=== PATIENT | male | born 1965 | race Caucasian/White ===

== ENCOUNTER → 2016-07-31 | Outpatient (CLI) | payer OTHER ==
[~2016-07-31] MED LIST: ASPI81TA28 PO; CHOL100010 PO; JOINT JUICE PO; MULT-221 PO; NAPR1TAB9 PO; POTASSIUM PO; PRLSR20 PO
[2016-07-31 12:37] LABS: BLOOD UREA NITROGEN 14 mg/dl (7-18); BUN/CREATININE RATIO 10.6 (10-20); CALCIUM 9.4 mg/dl (8.5-10.1); CARBON DIOXIDE 26 mmol/L (21-32); CHLORIDE 102 mmol/L (98-107); GLUCOSE 96 mg/dl (70-99); SODIUM 136 mmol/L (136-145)
[2016-07-31 12:40] LABS: CHOLESTEROL 186 mg/dl (0-200); HDL CHOLESTEROL 46 mg/dl; LDL CHOLESTEROL CALCULATED 116 mg/dl; TRIGLYCERIDES 119 mg/dl (0-150); VERY LOW DENSITY LIPOPROT CALC 24 mg/dl
== END | disposition home or self-care (01) ==
LOC: C.LABPVFM 08:51
PROVIDERS: ATTEND Nurse Practitioner
DX: R60.9 Edema, unspecified (principal); Z13.220 Encounter for screening for lipoid disorders; E55.9 Vitamin D deficiency, unspecified

== ENCOUNTER → 2017-02-10 | Outpatient (CLI) | payer OTHER ==
[2017-02-10 17:59] LABS: BLOOD UREA NITROGEN 18 mg/dl (7-18); GLUCOSE 92 mg/dl (70-99)
[2017-02-10 18:00] LABS: AMYLASE 55 U/L (25-115); BUN/CREATININE RATIO 13.5 (10-20); CALCIUM 9.6 mg/dl (8.5-10.1); CARBON DIOXIDE 28 mmol/L (21-32); CHLORIDE 104 mmol/L (98-107); POTASSIUM 4.2 mmol/L (3.5-5.1); SODIUM 137 mmol/L (136-145)
[2017-02-10 18:02] LABS: ALKALINE PHOSPHATASE 92 U/L (45-117); ALT/SGPT 35 U/L (12-78); AST/SGOT 29 U/L (15-37)
[2017-02-10 18:12] LABS: BASO % 0.3 %; BASO ABS # 0.02 K/uL (0-0.2); COMPLETE YES; EOS % 4.5 %; HEMATOCRIT 47.6 % (42-52); LYMPH % 35.8 %; LYMPH ABS # 2.37 K/uL (1.2-3.4); MEAN CELL VOLUME 89.3 fL (80-100); MEAN CORPUSCULAR HEMOGLOBIN 29.6 pg (25-34); MEAN CORPUSCULAR HGB CONC 33.2 g/dl (32-36); MEAN PLATELET VOLUME 10.4 fL (7.4-10.4); MONO % 11.8 %; NEUT % 47.6 %; PLATELET COUNT 227 K/uL (130-400); RED BLOOD COUNT 5.33 M/uL (4.7-6.1); WHITE BLOOD COUNT 6.62 K/uL (4.8-10.8)
== END | disposition home or self-care (01) ==
LOC: C.LABPVFM 13:24
PROVIDERS: ATTEND Nurse Practitioner Family
DX: R10.11 Right upper quadrant pain (principal)

== ENCOUNTER → 2017-02-11 | Outpatient (CLI) | payer OTHER ==
--- NOTE | 2017-02-11 07:44 | DIAGNOSTIC IMAGING REPORT ---
ULTRASOUND RIGHT UPPER QUADRANT ABDOMEN CLINICAL HISTORY: Intermittent right upper quadrant abdominal pain. COMPARISON STUDY: No priors. TECHNIQUE: Real-time, grayscale, and color flow sonography of the right upper quadrant of the abdomen was performed. Images are reviewed in the transverse and longitudinal planes. The examination is degraded by large body habitus. FINDINGS: Liver: The liver is mildly enlarged measuring over 18 cm in length. The liver demonstrates heterogeneously increased echotexture consistent with hepatic steatosis. There is no intrahepatic biliary ductal dilatation. The main portal vein is patent. Gallbladder: The gallbladder is normal in appearance. No gallstones are identified. There is no gallbladder wall thickening or pericholecystic fluid. A sonographic Plaza's sign is reportedly absent. The common bile duct measures up to 0.4 cm in diameter. Pancreas: Visualized portions of the pancreatic head are normal in appearance. The majority of the pancreas was not well visualized. Right kidney: Survey images of the right kidney demonstrate normal size and echotexture. There is no hydronephrosis. Ascites: None. IMPRESSION: 1. No acute sonographic abnormality is identified in the right upper quadrant. No gallstones are seen. 2. Hepatomegaly and hepatic steatosis. Electronically signed by: Jose Juan Aceves M.D. 02/11/2017 7:42 AM Dictated Date/Time: 02/11/2017 7:41 AM
== END | disposition home or self-care (01) ==
LOC: C.ULTR 06:38
PROVIDERS: ATTEND Nurse Practitioner Family
DX: R10.11 Right upper quadrant pain (principal)

== ENCOUNTER → 2017-07-19 | Outpatient (CLI) | payer OTHER ==
[2017-07-19 12:44] LABS: ALBUMIN 3.6 gm/dl (3.4-5.0); ALT/SGPT 33 U/L (12-78); BLOOD UREA NITROGEN 19 mg/dl (7-18); CALCIUM 8.9 mg/dl (8.5-10.1); CARBON DIOXIDE 28 mmol/L (21-32); CHOLESTEROL 157 mg/dl (0-200); CREATININE 1.22 mg/dl (0.60-1.40); GLUCOSE 108 mg/dl (70-99); POTASSIUM 4.5 mmol/L (3.5-5.1); SODIUM 141 mmol/L (136-145)
[2017-07-19 12:47] LABS: ALKALINE PHOSPHATASE 74 U/L (45-117); AST/SGOT 21 U/L (15-37); LDL CHOLESTEROL CALCULATED 100 mg/dl; TOTAL PROTEIN 7.5 gm/dl (6.4-8.2)
== END | disposition home or self-care (01) ==
LOC: C.LABPVFM 08:54
PROVIDERS: ATTEND Nurse Practitioner Family
DX: R60.9 Edema, unspecified (principal); E66.01 Morbid (severe) obesity due to excess calories; E55.9 Vitamin D deficiency, unspecified

== ENCOUNTER → 2017-10-18 | Outpatient (CLI) | payer OTHER ==
[2017-10-18 13:05] LABS: HEMOGLOBIN A1C 5.6 % (4.5-5.6)
== END | disposition home or self-care (01) ==
LOC: C.LABPVFM 09:41
PROVIDERS: ATTEND Family Medicine
DX: E66.01 Morbid (severe) obesity due to excess calories (principal); R73.01 Impaired fasting glucose

== ENCOUNTER 2024-02-24 11:52 | Inpatient (IN) ==
--- NOTE | 2024-02-24 12:01 | Emergency Department Note ---
Impression & Plan Septic arthritis of knee, left, Pneumonia ED Provider Note NAME: NASH CLARK AGE: 59 SEX: M : 1965 ARRIVES VIA: Ambulance INFORMANT: Patient ED PROVIDER(S): FREDY Perez, Julian Pandey MD Chief Complaint: Left knee Injury History of Present Illness: This patient is a 59-year-old male who presents to the Emergency Department via ambulance for evaluation of their left knee pain. The patient reports they were seen at [facility] yesterday, and had an x-ray done of the left knee. The patient reports they were contacted by [facility] upon discharge and reported there was no fracture, and informed to follow-up with primary care. The patient states he went home, and noted he was unable to tolerate weight on the extremity. He reports he went to bed, and awoke today unable to bear weight at all due to severe pain. The patient also reports recent illness, with rhinovirus infection. He states he did have a an episode of fever, however it resolved on its own and this was approximately a week ago. He states since that time he has been feeling well, and denies other symptoms. He reports no cough, chest pain, abdominal pain, nausea, or vomiting. He is neurovascularly intact. Medications: See below Allergies: Cipro PMH: See ROS: All pertinent positive and negative review of systems are appropriately documented in the History of Present Illness. Physical Exam: VITALS: Vitals are noted on the nurse's note and reviewed by myself. Vital signs stable. GENERAL: 59-year-old male, in no acute distress, nondiaphoretic, morbidly obese. SKIN: Faint erythema present to the left medial and superior patella, edema present. HEAD: Normocephalic atraumatic. HEART: Tachycardia, without murmurs rubs or gallops. LUNGS: Clear to auscultation bilaterally without wheezes, rales or rhonchi. No retractions or accessory muscle use. ABDOMEN: Positive bowel sounds x 4. Soft, nontender, without masses or organomegaly. Plaza sign negative. No guarding or rebound tenderness. MUSCULOSKELETAL: Limited range of motion left knee, due to pain. Patient unable to perform range of motion without assistance. Discoloration of the bilateral lower extremities, from venous stasis. DP pulse intact, full range of motion left ankle, capillary refill <3. NEURO: Patient was alert and oriented to person place and time. No focal neurological deficits. MEDICAL DECISION MAKING: The patient is a pleasant 59-year-old male who arrives to the emergency department for evaluation of the above-stated complaint. Upon examination the patient has tenderness to palpation of the left knee, with no injury present. X-ray imaging was performed the day prior which showed a moderate to large joint effusion, with intra-articular loose bodies. A saline lock was established, CBC, CMP, ESR, CRP, and uric acid were obtained. CBC shows leukocytosis of 34.01, with a stable anemia, CMP shows no concerning findings, ESR 73, CRP 38.04, uric acid 7.4. At the return of these results, chest x-ray, blood cultures, procalcitonin, and lactate were ordered. Chest x- ray showed a finding of pneumonia, likely from his previous upper respiratory infection. Lactate 1.0, procalcitonin 2.15. I spoke with Dr. Pandey, my attending, regarding the patient's findings and antimicrobial coverage. He recommended drainage of the joint, with the evaluation of the fluid prior to antimicrobial coverage. Dr. Pandey was able to perform this procedure at bedside, please refer to his documentation regarding this procedure. After the synovial fluid was obtained, and blood cultures were obtained, the patient was started on IV Zosyn and IV vancomycin. He received 2 L bolus of normal saline as well. I spoke with Dr. Pollard from orthopedics regarding the findings of the left knee. He reported to admit the patient to medicine, make the patient n.p.o. after midnight, and he will take him to the operating room in the morning for a washout. I spoke with case management regarding admission for this patient, due to sepsis. Case management facilitated contact with the [facility] hospitalist group, Dr. Solomon, attending. Dr. Solomon agreed to accept the patient under his care. Please refer to his documentation for further patient workup and treatment. DIFFERENTIAL DIAGNOSIS: Fracture, dislocation, infection, effusion, septic arthritis, sepsis, pneumonia, upper respiratory infection, as well as other pathologies. The patient's case was discussed with Dr. Pandey, who agreed with my evaluation and treatment plan. The chart was completed utilizing [employer] voice recognition software. Grammatical errors, random word insertions, pronoun errors, and incomplete sentences are an occasional consequence of this system due to software limitations, ambient noise, and hardware issues. Any formal questions or concerns about the content, text, or information contained within the body of this dictation should be directly addressed to the physician for clarification. Past Med/Surg History Problem List (Updated 02/24/24 @ 20:25 by FREDY Hilario) Rhinovirus Pneumonia (Acute) Septic arthritis of knee, left (Acute) Decreased right shoulder range of motion Lymphedema Cellulitis of right lower leg Impaired fasting glucose Plantar wart of left foot Annual physical exam Vitamin D deficiency Dermatitis Acid reflux disease Obesity Medical History Infected sebaceous cyst Tachycardia Surgical History History of tonsillectomy Family History Father Malignant neoplasm of esophagus Myocardial infarction Uncle Myocardial infarction Denies family history of Ovarian cancer Prostate cancer Breast cancer Colorectal cancer Social History Smoking Status: Former smoker Age Started Using Tobacco: 17; Age Quit Using Tobacco: 25; packs per day: 0.5; Second Hand Exposure: No; Do You Dip or Chew Tobacco: No; Hx Alcohol Use: Yes Alcohol type: beer Alcohol Intake Frequency Comment: 5 beers per week Hx Substance Use: No Preferred Language: Indonesian Communication Ability: Effective 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 Beliefs That Will Affect Care: None marital status: Current Living Situation: Spouse current occupational status: employed current occupation: self employeed How many Children do You have: 0 Other Information That Helps Us Care for You: No Feels Safe at Home: Yes Safety Concerns: Feels Safe At This Time Childhood Exposure to Second-Hand Smoke: Yes Diet: regular caffeine: Yes Dental Care, Regularly: Yes Physical Activity Frequency: Daily Seatbelt Use: never Sunscreen Use: No Assistive Devices: Glasses Allergies Allergies Allergy/AdvReac Type Severity Reaction Status Date / Time No Known Allergies Allergy Verified 02/24/24 14:50 Home Meds Home Medications Medication Instructions Recorded Confirmed aspirin 81 mg tablet 81 mg PO DAILY 01/25/19 02/24/24 cholecalciferol (vitamin D3) 50 2,000 units PO DAILY 01/25/19 02/24/24 mcg (2,000 unit) tablet multivitamin (One-A-Day Essential 1 tab PO DAILY 01/25/19 02/24/24 tablet) potassium gluconate 595 mg (99 mg) 595 mg PO DAILY 01/25/19 02/24/24 tablet metformin 1,000 mg tablet 1,000 mg PO BIDWMEAL 02/24/24 02/24/24 phentermine 37.5 mg capsule 37.5 mg PO QAM 02/24/24 02/24/24 topiramate 50 mg tablet 50 mg PO BID 02/24/24 02/24/24 Previous Rx's Medication Instructions Recorded furosemide 20 mg tablet 30 mg (1.5 x 20 mg) PO DAILY #135 02/21/24 tabs prednisone 10 mg tablet 40 mg (4 x 10 mg) PO DAILY 7 days 02/21/24 #28 tabs Results & Data (ED) Vital Signs Vital Signs - 24 hr 02/24/24 12:00 Temperature 36.9 C Temperature Source Oral Pulse Rate 109 H Respiratory Rate 18 Respiratory Effort / Characteristics Non-Labored Spontaneous Respiratory Depth Normal Blood Pressure 141/101 H Blood Pressure Mean 114 Pulse Oximetry 96 Oxygen Delivery Method Room Air Sepsis Recent Fever Within 48 Hours No Sepsis New/Unexplained Change in Mental Status No Sepsis Action Taken by Nursing No Action Required Home Medications Current Medication List: was personally reviewed by me Laboratory Data Attestation: I reviewed the patient's lab results. 02/24/24 12:30 02/24/24 12:30 Lab Results 02/24/24 02/24/24 02/24/24 Range/Units 12:30 12:30 13:25 WBC 34.01 H* (4.8-10.8) K/ul RBC 4.59 L (4.70-6.10) M/uL Hgb 13.6 L (14.0-18.0) g/dl Hct 41.0 L (42.0-52.0) % MCV 89.3 (80.0-100.0) fL MCH 29.6 (25.0-34.0) pg MCHC 33.2 (32.0-36.0) g/dL RDW Std Deviation 41.4 (36.4-46.3) fL RDW Coeff of Elham 12.6 (11.5-14.5) % Plt Count 253 (130-400) K/uL MPV 10.1 (9.4-12.4) fL Immature Gran % (Auto) 0.6 % Neut % (Auto) 95.0 % Lymph % (Auto) 1.8 % Nicollet % (Auto) 2.2 % Eos % (Auto) 0.0 % Baso % (Auto) 0.4 % Neut # (Auto) 32.35 H (1.40-6.50) K/uL Lymph # (Auto) 0.60 L (1.20-3.40) K/uL Nicollet # (Auto) 0.74 H (0.11-0.59) K/uL Eos # (Auto) 0.00 (0.00-0.50) K/uL Baso # (Auto) 0.12 (0.00-0.20) K/uL Immature Gran # (Auto) 0.20 (0.01-0.20) K/uL ESR 73 H (0-20) mm/hr Sodium 135 L (136-145) mmol/L Potassium 4.1 (3.5-5.1) mmol/L Chloride 104 (98-107) mmol/L Carbon Dioxide 22 (21-32) mmol/L Anion Gap 9 (3-11) BUN 29 H (6-23) mg/dl Creatinine 1.29 (0.6-1.4) mg/dl Est Cr Clr Drug Dosing 87.9 ml/min Est GFR ( Amer) 69.4 ml/min Est GFR (Non-Af Amer) 59.9 ml/min BUN/Creatinine Ratio 22.5 H (10-20) Glucose 130 H (70-99(Fasting)) mg/dl Lactate 1.0 (0.4-2.0) mmol/L Uric Acid 7.4 H (2.6-7.2) mg/dl Calcium 9.2 (8.6-10.3) mg/dl Total Bilirubin 1.1 H (0.2-1.0) mg/dl AST 16 (13-39) U/L ALT 15 (7-52) U/L Alkaline Phosphatase 79 (34-104) U/L C-Reactive Protein 38.04 H (0-0.5) mg/dl Total Protein 6.8 (6.0-8.3) gm/dl Albumin 3.2 L (3.4-5.0) gm/dl Globulin 3.6 (2.5-4.0) gm/dl Albumin/Globulin Ratio 0.9 (0.9-2) Procalcitonin 2.15 H Cancelled (0-0.5) ng/ml Lyme Disease Screen Negative (Negative) Administered Medications Acetaminophen (Acetaminophen 325 Mg Tab) 650 mg PO Q6H PRN PRN Reason: pain(1-4),headache,fever Stop: 03/25/24 14:22 Last Admin: 02/24/24 17:48 Dose: 650 mg Documented By: SANCHEZ Morphine Sulfate (Morphine Sulfate 2 Mg/Ml Carp) 2 mg IV Q4H PRN PRN Reason: Pain(5+) Stop: 03/09/24 14:22 Last Admin: 02/24/24 14:41 Dose: 2 mg Documented By: ROYAL Discontinued Medications Piperacillin Sod/Tazobactam Sod (Zosyn) 4.5 gm in 100 mls @ 200 mls/hr IV NOW ONE Stop: 02/24/24 14:34 Last Infusion: 02/24/24 15:35 Dose: Infused Documented By: Admin: 02/24/24 14:41 Dose: 200 mls/hr Documented By: ROYAL Piperacillin Sod/Tazobactam Sod (Zosyn) 4.5 gm in 100 mls @ 200 mls/hr IV NOW ONE Stop: 02/24/24 14:36 Last Admin: 02/24/24 14:48 Dose: Not Given Documented By: JOAQUINA Vancomycin HCl 2,750 mg/ (Sodium Chloride) 555 mls @ 200 mls/hr IV NOW ONE Stop: 02/24/24 16:57 Last Infusion: 02/24/24 18:20 Dose: Infused Documented By: Admin: 02/24/24 15:29 Dose: 200 mls/hr Documented By: MAXIMILIANO Lactated Ringer's (Lr) 1,000 mls @ 999 mls/hr IV .Q1H1M ONE Stop: 02/24/24 15:17 Last Admin: 02/24/24 14:48 Dose: Not Given Documented By: JOAQUINA Lidocaine HCl (Lidocaine 1% Local 20 Ml Vial) 10 ml INJ NOW ONE Stop: 02/24/24 13:31 Last Admin: 02/24/24 13:39 Dose: 10 ml Documented By: JOAQUINA Imaging Data Attestation: I personally reviewed and interpreted this imaging study as follows: Radiologist's Impression: Chest X-Ray 02/24/24 13:29 XR chest 1V portable HISTORY: Cough. r/o pneumonia COMPARISON: None. FINDINGS: No pneumothorax. The cardiac silhouette is top normal in size. No acute fractures identified. There is a trace left pleural effusion. Small linear density at the right medial lung base favors subsegmental atelectasis are scarring. Otherwise, the right lung appears clear. There is a patchy left perihilar airspace opacity. This likely represents a pneumonia. IMPRESSION: 1. Patchy left perihilar airspace opacity which likely represents a pneumonia. 1-2 month chest x-ray follow-up recommended to ensure resolution. 2. Trace left pleural effusion. ACT 112: Negative or not required by law. Electronically signed by: Berhane Nance M.D. 02/24/2024 1:45 PM Discharge Plan Visit Data Chief Complaint: Knee Injury/Pain Stated Complaint: L KNEE PAIN ED Provider: Julian Pandey ED Midlevel Provider: Kelli Camacho Discharge Problem: Septic arthritis of knee, left, Pneumonia Patient Disposition: Admitted As Inpatient Discharge Instructions Interventions: ED Discharge Assessment Last Done: 02/24/24 16:12
[2024-02-24 13:13] LABS: Albumin Globulin Ratio 0.9 (0.9-2); Albumin Level 3.2 gm/dl (3.4-5.0); BUN Creatinine Ratio 22.5 (10-20); Bilirubin,Total 1.1 mg/dl (0.2-1.0); Calcium 9.2 mg/dl (8.6-10.3); Creatinine Clr Calc Pharmacy 87.9 ml/min; Est GFR (African American) 69.4 ml/min; Est GFR (Non-African American) 59.9 ml/min; Globulin 3.6 gm/dl (2.5-4.0); Potassium 4.1 mmol/L (3.5-5.1); Total Protein 6.8 gm/dl (6.0-8.3); Uric Acid 7.4 mg/dl (2.6-7.2)
[2024-02-24 13:17] LABS: Hemoglobin 13.6 g/dl (14.0-18.0); Mean Corpuscular Hemoglobin 29.6 pg (25.0-34.0); Mean Corpuscular Hgb Conc 33.2 g/dL (32.0-36.0); Mean Corpuscular Volume 89.3 fL (80.0-100.0); Mean Platelet Volume 10.1 fL (9.4-12.4); Platelet Count 253 K/uL (130-400); RDW Coefficient of Variation 12.6 % (11.5-14.5); RDW Standard Deviation 41.4 fL (36.4-46.3); Red Blood Count 4.59 M/uL (4.70-6.10); White Blood Count 34.01 K/ul (4.8-10.8)
[2024-02-24 13:31] LABS: Basophils # (auto) 0.12 K/uL (0.00-0.20); Basophils % (auto) 0.4 %; Immature Granulocytes % (auto) 0.6 %; Lymphocytes % (auto) 1.8 %; Monocytes # (auto) 0.74 K/uL (0.11-0.59); Monocytes % (auto) 2.2 %; Neutrophils # (auto) 32.35 K/uL (1.40-6.50)
[2024-02-24] MEDS: LIDOCAINE 1% LOCAL 20 ML VIAL INJ ONE (13:39)
[2024-02-24 13:44] LABS: Lyme Screen Rflx Confirmation Negative (Negative)
--- NOTE | 2024-02-24 13:47 | XRay Report ---
XR chest 1V portable HISTORY: Cough. r/o pneumonia COMPARISON: None. FINDINGS: No pneumothorax. The cardiac silhouette is top normal in size. No acute fractures identifie d. There is a trace left pleural effusion. Small linear density at the right medial lung base favors subsegmental atelectasis are scarring. Otherwise, the right lung appears clear. There is a patchy lef t perihilar airspace opacity. This likely represents a pneumonia. IMPRESSION: 1. Patchy left perihilar airspace opacity which likely represents a pneumonia. 1-2 month chest x-ray follow-up recommended to ensure resolution. 2. Trace left pleural effusion. ACT 112: Negative or not required by law. Electronically signed by: Berhane Nance M.D. 02/24/2024 1:45 PM
[2024-02-24 13:52] LABS: Procalcitonin 2.15 ng/ml (0-0.5)
--- NOTE | 2024-02-24 13:52 | Emergency Department Note ---
ED Visit Note ED Physician Supervisory Note & Attestation: I was consulted by the Advanced Practice Provider, FREDY Perez. I personally made/approved the management plan and take responsibility for the patient management. I performed a substantive portion of the visit. This includes the aspects of: MDM: 59-year-old gentleman with left knee pain over the last few days. Patient had recently been diagnosed with rhinovirus infection about a week ago. Initially improved and then started feeling ill again. Rapidly worsening left knee pain. Seen outpatient where x-rays obtained which showed joint effusion and some questionable foreign bodies throughout the knee joint. 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 He denies any falls, trauma, injuries. On examination he has a significantly swollen edematous left knee. Severe pain with any range of motion. Questionable very slight erythema over the medial aspect of the knee. With laboratory workup concerning for infection I felt that tapping the knee was necessary. I did obtain 20 cc of cloudy purulent fluid. Difficulty accessing from lateral component thus a medial/anterior approach was successful in accessing the joint. Patient was then ordered Zosyn. Orthopedics will be consulted. I will note the chest x-ray also shows a left lower lobe pneumonia. Suspect this is either rhinovirus or a secondary infection post rhinovirus. It may be that this is what seeded the knee. Orthopedics was consulted and at this time do plan on taking patient to the OR tomorrow for washout. Sepsis management. While patient does have evidence of sepsis and in the setting of some tachycardia and elevated white blood cell count and findings of infection blood culture were obtained. He was also given IV Zosyn for coverage. Repeat examinations revealed no evidence of hypotension and patient does not have any hypoxia or other concerning findings. Lactic acid is within normal range. Of note patient does not require 30/kg IV fluids at this time. Imaging: Three-view x-ray of the left knee as per my interpretation moderate to large left effusion no evidence of fracture or dislocation. 1 view chest x-ray as per my interpretation left lower lobe infiltrate with some mild haziness all lung clay. Procedure: Procedure: Joint aspiration Indication: Concern for septic joint Location: Left knee After discussing the pros and cons verbally with patient he agrees to proceeding with left knee aspiration. Patient is aware of the risks of causing infection along with pain, injury, bleeding amongst others. Area was cleansed and Betadine and using sterile approach I locally anesthetized the lateral upper area to patella with 2cm 1% lidocaine without epinephrine. In standard fashion, I then used an 18-gauge needle to try and access the joint space. Unfortunately unable to get much fluid other than a trace amount. Due to the amount of edema and patient's body habitus it was difficult to access the joint from this location. Thus at this point a new needle and syringe was obtained. I reanesthetized locally the medial aspect of the knee joint with lidocaine. I then used an 18-gauge needle to access the joint space. Large amount of purulent exudate was removed. This will be sent for laboratory testing. There is a component bleeding. Patient tolerated quite well without difficulty. I performed the procedure myself. Julian Pandey MD
[2024-02-24 14:02] LABS: C Reactive Protein 38.04 mg/dl (0-0.5)
[2024-02-24] MEDS ORDERED: VANCOMYCIN CONSULT ACTIVE PRN (14:07)
--- NOTE | 2024-02-24 14:20 | History & Physical Report ---
Date of Service February 24, 2024 Assessment & Plan (1) Septic arthritis of knee, left: Plan: Admit to med telemetry Currently stable and nontoxic-appearing Presented to the ED on 02/24/2024 due to progressive left knee swelling and pain after starting a course of prednisone for recently diagnosed rhinovirus infection on 02/21/2024 Left knee x-ray obtained 02/23/2024 shows moderate to large effusion without acute trauma Patient noted to have a significant leukocytosis with neutrophil predominance, would not expect this significant for leukocytosis with neutrophil predominance for being on his current steroids ED obtained left knee aspirate which has been sent for fluid analysis and Gram stain, they explained that the aspirate was significantly purulent raising concern for septic arthritis After blood cultures are obtained at the time of admission we will give the patient a dose of ceftriaxone for now and follow joint aspirate studies along with Gram stain Will tailor ongoing antibiotics based on aspirate analysis and Gram stain Lactate was within normal limits, blood pressure stable, will hold IV fluids for now Orthopedics has been consulted and confirms they will take the patient to the OR tomorrow morning for left knee washout Pain control with Tylenol and morphine for now Narcan for oversedation/respiratory depression Heart healthy diet until midnight then n.p.o. except meds AM CBC, CMP, mag, PT/NR (2) Pneumonia: Plan: Patient noted he has had upper respiratory infections including congestion and mildly productive cough for approximately 1 week Outpatient respiratory BioFire was positive for rhinovirus on 02/21/2024 Chest x-ray today shows patchy left perihilar airspace opacity which likely represents pneumonia, 1 to 2 months chest x-ray follow-up recommended to ensure resolution Will try to obtain sputum culture with Gram stain Continue vancomycin/Zosyn for now pneumonia and septic arthritis, will ensure ongoing antibiotics will continue to cover both sources of infection Incentive spirometry, as needed O2 to keep SpO2 at or above 94% As needed albuterol (3) Rhinovirus: Plan: Supportive care per pneumonia plan Plan The patient was discussed with Dr. Solomon at the time of the admission History of Present Illness Chief Complaint: Left knee pain/swelling Primary Care Provider: Ronaldo Stoddard DO Ednancy is a 59-year-old male with a past medical history significant for obesity and GERD who presented to the [facility] ED on 02/24/2024 due to ongoing/progressive left knee pain and swelling. Patient was initially diagnosed with rhinovirus on 02/21/2024 during a PCP visit and was prescribed a prednisone taper. He then presented to the [facility] clinic on 02/23/2024 due to left knee pain. X-ray of the left knee obtained on 02/23/2024 was read as negative for acute fracture or dislocation. Moderate to large knee effusion with intra-articular loose bodies. Severe tricompartmental osteoarthritis. On arrival to the ED he was noted to be tachycardic with heart rate in the low 100s but otherwise stable. Labs were significant for a leukocytosis of 34 with neutrophil predominance of 32, ESR of 73, lactate within normal limits, uric acid level of 7.4, CRP of 38, Pro-Avelino of 2.15, with Lyme disease screen negative. The ED to perform joint aspiration of the left knee and noted significantly purulent aspirate which has been sent for analysis. Stat blood cultures were ordered by the admitting team prior to administration of first dose of antibiotics. Chest x-ray was read as patchy left perihilar airspace opacity which like represents a pneumonia. 1-2-month chest x-ray follow-up recommended to ensure resolution. Trace left pleural effusion. The ED did speak with orthopedics who confirmed that they will take him to the OR tomorrow morning for washout. Patient was sitting in bed in no acute distress at time of exam with his bedside, history is obtained from both. Confirms that he initially presented to his PCP on 02/21/2024 due to routine follow-up appointment and underwent bio fire testing as he had cold symptoms and tested positive for rhinovirus. Confirms that he had been taking the prednisone taper since 02/21/2024 as scheduled with his last dose of steroids this morning. States that his left knee pain/swelling quickly started on 02/22/2024. Has been having fever/chills intermittently since 02/21/2024 but denies recent chest pain, shortness of breath, abdominal pain, na usea/vomiting, diarrhea, dysuria/hematuria, melena, or recent trauma. Confirms that his right shoulder pain is chronic due to previous right shoulder injury and is not associated with his recent left knee pain or swelling. Confirms he is a full code and would want his to decisions for him if he cannot make them himself. Please refer to Dr. Solomon's attestation for any changes to the plan Allergies Allergy/AdvReac Type Severity Reaction Status Date / Time No Known Allergies Allergy Verified 02/24/24 14:50 Home Medications Medication Instructions Recorded Confirmed Type aspirin 81 mg tablet 81 mg PO DAILY 01/25/19 02/24/24 History cholecalciferol (vitamin D3) 50 2,000 units PO DAILY 01/25/19 02/24/24 History mcg (2,000 unit) tablet multivitamin (One-A-Day Essential 1 tab PO DAILY 01/25/19 02/24/24 History tablet) potassium gluconate 595 mg (99 mg) 595 mg PO DAILY 01/25/19 02/24/24 History tablet furosemide 20 mg tablet 30 mg (1.5 x 20 mg) PO DAILY #135 02/21/24 02/24/24 Rx tabs prednisone 10 mg tablet 40 mg (4 x 10 mg) PO DAILY 7 days 02/21/24 02/24/24 Rx #28 tabs metformin 1,000 mg tablet 1,000 mg PO BIDWMEAL 02/24/24 02/24/24 History phentermine 37.5 mg capsule 37.5 mg PO QAM 02/24/24 02/24/24 History topiramate 50 mg tablet 50 mg PO BID 02/24/24 02/24/24 History Past Med/Surg History Problem List Rhinovirus Pneumonia (Acute) Septic arthritis of knee, left (Acute) Decreased right shoulder range of motion Lymphedema Cellulitis of right lower leg Impaired fasting glucose Plantar wart of left foot Annual physical exam Vitamin D deficiency Dermatitis Acid reflux disease Obesity Medical History Infected sebaceous cyst Tachycardia Surgical History History of tonsillectomy Family History Father Malignant neoplasm of esophagus Myocardial infarction Uncle Myocardial infarction Denies family history of Ovarian cancer Prostate cancer Breast cancer Colorectal cancer Social History Smoking Status: Former smoker Age Started Using Tobacco: 17; Age Quit Using Tobacco: 25; packs per day: 0.5; Second Hand Exposure: No; Do You Dip or Chew Tobacco: No; Hx Alcohol Use: Yes Alcohol type: beer Alcohol Intake Frequency Comment: 5 beers per week Hx Substance Use: No Preferred Language: Bahraini Communication Ability: Effective Test Engineering Manager Required: No Beliefs That Will Affect Care: None marital status: Current Living Situation: Spouse current occupational status: employed current occupation: self employeed How many Children do You have: 0 Other Information That Helps Us Care for You: No Feels Safe at Home: Yes Safety Concerns: Feels Safe At This Time Childhood Exposure to Second-Hand Smoke: Yes Diet: regular caffeine: Yes Dental Care, Regularly: Yes Physical Activity Frequency: Daily Seatbelt Use: never Sunscreen Use: No Assistive Devices: Glasses Physical Exam Physical Exam: Physical Exam: General: In no acute distress, stated age, obese, nontoxic-appearing HEENT: Normocephalic, atraumatic, no scleral icterus, pupils around round, symmetrical, and reactive to light, moist mucus membranes, trachea midline, no thyromegaly Chest/Pulm: No respiratory distress, symmetrical chest expansion, rhonchi noted in the left midlung with scattered expiratory wheezing Cardiac: Tachycardic rate, regular rhythm,, no murmurs noted Abdomen: Negative for ascites and bruising, normoactive bowel sounds, soft, non-tender to palpation throughout Musculoskeletal: Left knee swollen and warm to palpation, no acute drainage from the recent left knee aspiration site, increased pain with flexion and extension of the left knee without acute trauma Extremities: Radial, dorsalis pedis, and posterior tibial pulses are intact and symmetrical, symmetrical chronic lymphedema in the bilateral lower extremities with increased swelling the left knee compared to right Skin: Left knee currently covered in Betadine from recent knee aspirate, skin is warm to the touch Neuro: Alert and oriented to person, place, month, year, and president, no focal defects,no tremors noted Psych: No acute distress, calm and cooperative during the exam Results & Data Results & Data Vital Signs (Past 12 Hours) Vital Signs Temp Pulse Resp BP Pulse Ox O2 Del Method 02/24/24 12:00 36.9 C 109 H 18 141/101 H 96 Room Air Laboratory Results Abnormal lab results 02/24/24 Range/Units 12:30 WBC 34.01 H* (4.8-10.8) K/ul RBC 4.59 L (4.70-6.10) M/uL Hgb 13.6 L (14.0-18.0) g/dl Hct 41.0 L (42.0-52.0) % Neut # (Auto) 32.35 H (1.40-6.50) K/uL Lymph # (Auto) 0.60 L (1.20-3.40) K/uL Blount # (Auto) 0.74 H (0.11-0.59) K/uL ESR 73 H (0-20) mm/hr Sodium 135 L (136-145) mmol/L BUN 29 H (6-23) mg/dl BUN/Creatinine Ratio 22.5 H (10-20) Glucose 130 H (70-99(Fasting)) mg/dl Uric Acid 7.4 H (2.6-7.2) mg/dl Total Bilirubin 1.1 H (0.2-1.0) mg/dl C-Reactive Protein 38.04 H (0-0.5) mg/dl Albumin 3.2 L (3.4-5.0) gm/dl Procalcitonin 2.15 H (0-0.5) ng/ml Diagnostic Findings Chest X-Ray 02/24/24 13:29 XR chest 1V portable HISTORY: Cough. r/o pneumonia COMPARISON: None. FINDINGS: No pneumothorax. The cardiac silhouette is top normal in size. No acute fractures identified. There is a trace left pleural effusion. Small linear density at the right medial lung base favors subsegmental atelectasis are scarring. Otherwise, the right lung appears clear. There is a patchy left perihilar airspace opacity. This likely represents a pneumonia. IMPRESSION: 1. Patchy left perihilar airspace opacity which likely represents a pneumonia. 1-2 month chest x-ray follow-up recommended to ensure resolution. 2. Trace left pleural effusion. ACT 112: Negative or not required by law. Electronically signed by: Berhane Nance M.D. 02/24/2024 1:45 PM Code Status & VTE Plan Code Status Full code VTE Prophylaxis Plan VTE Prophylaxis will be ordered: Yes Supervising Physician Co-Signing Physician Notes I personally saw and examined the patient. I verified all cuellar points and agree with Danie Benson PA-C with the following exceptions and/or additions: 59 year old male presents to the ER with left knee swelling and pain with recent URI symptoms currently on prednisone. O/E HS RRR, no murmurs, Chest CTAB, Abdo SNT, Left knee now covered in iodine but no gross erythema, knee effusion with pain on palpation of joint present A/P Septic knee arthritis - GPC on gram stain knee aspirate. continue vancomycin per uptodate recommendations (ceftriaxone prescribed mostly for pneumonia) pending full identification. consult ortho. NPO after midnight for knee washout PNA - ceftriaxone, sputum culture pending Rhino/enterovirus - supportive care PG Care Time/CCT Total # of Minutes Spent Total Time Spent with Patient: Total time spent is greater than 50% in coordination of care (as documented) at patient's floor/unit and/or counseling patient: Coding [place] [address] INT INP/OBS CARE 3/75MIN Patient Type Established Medical Decision Making High Complexity Diagnoses Septic arthritis of knee, left M00.9 Pneumonia J18.9 Rhinovirus B34.8
[2024-02-24] MEDS ORDERED: NALOXONE HCL 0.4 MG/1 ML VIAL/CARP IV PRN (14:23)
[2024-02-24] MEDS: PIPERACILLIN/TAZOBACTAM 4.5 GM/100 ML BAG IV ONE ×2 (14:41→14:48)
[2024-02-24] MEDS: MoRPHine SULFATE 2 MG/ML CARP IV PRN (14:41)
[2024-02-24] MEDS ORDERED: ALBUTEROL 0.5% NEB SOLN 2.5 MG/0.5 ML VIAL NEB PRN (14:44)
[2024-02-24] MEDS: LACTATED RINGER'S 1,000 ML IV ONE (14:48)
[2024-02-24] MEDS: VANCOMYCIN HCL 2,750 MG in SODIUM CHLORIDE 0.9% 500 ML IV ONE (15:29)
[2024-02-24 16:15] LABS: Appearance Synovial Fluid Turbid; Color Synovial Fluid Amber; Mononuclear WBC Synovial 13.1 %; Polynuclear WBC Synovial 86.9 %; RBC Synovial Fluid Auto 68000 /uL; Source Synovial Fluid Knee; WBC Synovial Fluid Auto 216850 /ul (0-200)
[2024-02-24] MEDS: ACETAMINOPHEN 325 MG TAB PO PRN (17:48)
[2024-02-24] MEDS: TOPIRAMATE 50 MG TAB PO SCH (20:35)
[2024-02-24] MEDS: cefTRIAXone SODIUM 2,000 MG/50 ML BAG IV SCH (21:59)
[2024-02-24] MEDS: LACTATED RINGER'S 1,000 ML IV SCH (22:32)
[2024-02-25 00:10] LABS: Appearance Urine Clear (Clear); Bilirubin Urine Negative (Negative); Blood Urine 2+ (Negative); Color Urine Yellow; Glucose Urine UA Negative (Negative); Ketones Urine Negative (Negative); Leukocyte Esterase Urine Negative (Negative); Nitrite Urine Negative (Negative); Protein Urine 1+ (Negative); Specific Gravity Urine 1.015 (1.000-1.030); Urobilinogen Urine Negative (Negative); pH Urine 5.5 (4.5-7.5)
[2024-02-25 01:09] LABS: A calco-baum cmplx NotReported Not Detected (NotDetected); Bact fragilis Not Reported Not Detected (NotDetected); Blood Culture Id Panel See PCR Comment (NotDetected); C auris Not Reported Not Detected (NotDetected); Calbicans Not Reported Not Detected (NotDetected); Candida glabrata Not Reported Not Detected (NotDetected); Candida krusei Not Reported Not Detected (NotDetected); Cneoformans/gatti Not Reported Not Detected (NotDetected); Cparapsilosis Not Reported Not Detected (NotDetected); E cloacae compx Not Reported Not Detected (NotDetected); Efaecalis Not Reported Not Detected (NotDetected); Efaecium Not Reported Not Detected (NotDetected); Enterobacterales Not Reported Not Detected (NotDetected); Escherichia coli Not Reported Not Detected (NotDetected); H influenzae Not Reported Not Detected (NotDetected); K aerogenes Not Reported Not Detected (NotDetected); Koxytoca Not Reported Not Detected (NotDetected); Kpneumoniae grp Not Reported Not Detected (NotDetected); Lmonocyt Not Reported Not Detected (NotDetected); N meningitidis Not Reported Not Detected (NotDetected); P aeruginosa Not Reported Not Detected (NotDetected); Proteus spp Not Reported Not Detected (NotDetected); Salmonella spp Not Reported Not Detected (NotDetected); Staph lugdunensis Not Reported Not Detected (NotDetected); Staph spp. Not Reported Not Detected (NotDetected); Staphaureus Not Reported Not Detected (NotDetected); Staphepi Not Reported Not Detected (NotDetected); Stenmaltophilia Not Reported Not Detected (NotDetected); Strep agal(GrpB) Not Reported Not Detected (NotDetected); Strep pneum Not Reported DETECTED (NotDetected); Strep pyog (GrpA) Not Reported Not Detected (NotDetected); Strep spp Not Reported DETECTED (NotDetected); Streptococcus spp DETECTED (NotDetected)
[2024-02-25 01:14] LABS: Epithelial Cell Urine 0-2 /hpf (0-2)
[2024-02-25 01:15] LABS: Bacteria Urine 1+ (None Seen); WBC Urine 0-5 /hpf (0-5)
[2024-02-25 01:29] LABS: Streptococcus pneumoniae DETECTED (NotDetected)
[2024-02-25 04:42] LABS: Mean Corpuscular Hemoglobin 30.2 pg (25.0-34.0); Mean Corpuscular Hgb Conc 34.2 g/dL (32.0-36.0); Mean Corpuscular Volume 88.2 fL (80.0-100.0); Platelet Count 245 K/uL (130-400); RDW Coefficient of Variation 12.8 % (11.5-14.5); Red Blood Count 4.31 M/uL (4.70-6.10); White Blood Count 28.88 K/ul (4.8-10.8)
[2024-02-25 04:59] LABS: Basophils # (auto) 0.05 K/uL (0.00-0.20); Basophils % (auto) 0.2 %; Immature Granulocytes % (auto) 0.7 %; Lymphocytes # (auto) 1.17 K/uL (1.20-3.40); Lymphocytes % (auto) 4.1 %; Monocytes # (auto) 0.88 K/uL (0.11-0.59); Neutrophils # (auto) 26.58 K/uL (1.40-6.50)
[2024-02-25 05:03] LABS: INR 1.4 (0.9-1.1); Prothrombin Time 14.4 Seconds (9.0-12.0)
[2024-02-25 05:05] LABS: Albumin Globulin Ratio 0.9 (0.9-2); Albumin Level 2.9 gm/dl (3.4-5.0); BUN Creatinine Ratio 17.9 (10-20); Bilirubin,Total 0.6 mg/dl (0.2-1.0); Calcium 8.9 mg/dl (8.6-10.3); Creatinine Clr Calc Pharmacy 84.6 ml/min; Est GFR (African American) 66.3 ml/min; Est GFR (Non-African American) 57.2 ml/min; Globulin 3.3 gm/dl (2.5-4.0); Magnesium 1.7 mg/dl (1.7-2.4); Potassium 4.1 mmol/L (3.5-5.1); Total Protein 6.2 gm/dl (6.0-8.3)
[2024-02-25] MEDS: VANCOMYCIN HCL 1,250 MG in SODIUM CHLORIDE 0.9% 250 ML IV SCH (05:47)
--- NOTE | 2024-02-25 06:50 | Hospitalist Progress Note ---
Date of Service February 25, 2024 Assessment & Plan (1) Rhinovirus: (2) Pneumonia: (3) Septic arthritis of knee, left: (4) Bacteremia: Plan 59-year-old male with a past medical history significant for obesity and GERD who presented to the [facility] ED on 02/24/2024 due to ongoing/progressive left knee pain and swelling. (1) Septic arthritis of knee, left: - Progressive left knee swelling Left knee x-ray obtained- shows moderate to large effusion without acute trauma - Lactate was within normal limits - Knee aspiration: increased WBC, Gram stain positive for Strp. Pneumoniae - Continue IV vancomycin 1250mg Q12H and IV ceftriaxone 2000mg Q24H - ID consulted: Continue to tailor antibiotics per ID recommendations Orthopedics consulted: OR today for left knee washout NPO, IV fluids Pain control with Tylenol and morphine prn (2) Gram positive Bacteremia: - WBC count 34 on admission, trending down, 29k this morning - Blood cx: Gram stain showed gram + bacteria - ID consulted for bacteremia and left knee septic arthritis Recommendations from ID: - Continue IV antibiotics - Recommend another BCx set to ensure clearance (can order these at 48-72 hours sarah) - Await OR findings and cultures - Follow arthrocentesis 02/23 cx (3) Pneumonia: Patient noted he has had upper respiratory infections including congestion and mildly productive cough for approximately 1 week Outpatient respiratory BioFire was positive for rhinovirus on 02/21/2024 - fever of 103.1F, leukocytosis, tachycardia Chest x-ray today shows patchy left perihilar airspace opacity which likely represents pneumonia Continue IV Abx Incentive spirometry, as needed O2 to keep SpO2 at or above 94% As needed albuterol (4) Rhinovirus: Supportive care per pneumonia plan Diet: Heart healthy diet, NPO today until after ortho procedure Dispo: Med telemetry Code Status: Full code DVT Prophylaxis: SCDs - plan for surgery today Admission and Anticipated Discharge Date Admission Date: February 24, 2024 Supervising Physician Co-Signing Physician Notes Attending Physician Supervision Note: I independently interviewed and examined the patient and verified the cuellar history and physical, reviewed labs and image studies and agree with findings and care plan noted above. 59 y/o M here with left knee swelling and pain with recent URI symptoms currently on prednisone. Seen this am. Waiting for surgery. In PACU - developed SVT 190s with hypotension. Comfortable this am. Left knee no gross erythema, knee effusion with pain on palpation of joint present Septic knee arthritis - now s/p washout. Blood cx - strep pneumo. -WBC improving. -ID consulted - continue ceftriaxone. Recheck cx in 72hrs. -LR 100ml/hr SVT unstable - developed in PACU. failed adenosine x2. cardio consulted - star gay on cardizem drip and transferred to ICU. Feeder Switchboard Operator consulted. PNA - ceftriaxone, sputum culture negative. Rhino/enterovirus - supportive care. d/c prednisone. Hyponatremia - stable. follow Glucose intolerance/Weight ds - On phenteramine, topamax and metformin. Holding. Assess DVT proph option in am. Subjective Patient is a 59M who first presented to the ER ON 02/24/2024 with a two day history of a painful and swollen left knee with no known injury or recent surgery but 3 day hx of URI. - On 02/20, pt had presented to PCP with URI sx, fever 103.1, +rhinovirus on Biofire, given prednisone - Pt presented to Urgent Care on 02/22 due to L knee pain, x-ray found no evidence of fracture - Pain increased at home and pt reported to the ER, synovial fluid tap determined possible septic arthritis of the L knee d/t significant WBC count in fluid - Labs confirmed significant leukocytosis 34.1 with neutrophil predominance and bacteremia - This morning, pt is feeling pretty much the same as yesterday, 8/10 pain in the L knee - He reports he did feel sick and feverish when he first went to PCP with URI sx, does not feel sick now - Today, no fevers/chills, no chest pain/arrhythmias, no edema - Breathing fine, no SOB, wheezing, or cough - Has had some headaches in the front of the head for the past couple days - No other joint or muscle pains, no neck or back pain - Overall feeling fine aside from knee pain Review of Systems Review of Systems: as per HPI Physical Exam Constitutional: WD/WN, vitals as above Respiratory: normal respiratory effort, lungs clear to auscultation Cardiovascular: Rate/Rhythm: regular rhythm and + tachycardic Results & Data Results & Data Vital Signs (Past 12 Hours) Vital Signs Temp Pulse Pulse Resp BP Pulse Ox O2 Del Method 02/25/24 04:21 37.2 C 106 H 20 126/81 93 Room Air 02/25/24 00:13 36.6 C 97 H 20 118/76 98 Room Air 02/24/24 21:56 103 H 02/24/24 21:04 36.8 C 101 H 20 128/76 93 Room Air Resident Activity Tracking Resident Involvement: Resident Care Provided Care Provided: Adult Hospital Medicine
--- NOTE | 2024-02-25 06:54 | Orthopedic Consultation ---
Date of Service February 25, 2024 Assessment & Plan (1) Septic arthritis of knee, left: I discussed with him the diagnosis and treatment options at bedside today. He does not recall any illnesses before this event. He has not had any recent dental work or any recent surgical procedures. It is really unknown where this infection came from. We plan to do an arthroscopic irrigation and debridement later today. He will then require IV antibiotics for treatment. He understands the risk benefits alternatives procedure elected proceed. Questions were answered at bedside. Time was spent scribing the procedure and postop expectations. He is currently NPO. Will do the procedure later this afternoon. History of Present Illness Reason for Consultation: [place] left knee infection. Requesting Physician: . Attending Physician: Solange Choudhury MD Luis Alfredo is a pleasant 59-year-old male who is a community ambulator without assistance. 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 He was in his normal state of health until earlier this week. He woke up Wednesday with significant left knee pain. The became much worse yesterday and he came to the emergency room last night. His left knee was aspirated and it was found to be infected. He was admitted to the medical service and orthopedics was consulted to evaluate and treat.. Allergies Allergy/AdvReac Type Severity Reaction Status Date / Time No Known Allergies Allergy Verified 02/24/24 14:50 Home Medications Medication Instructions Recorded Confirmed Type aspirin 81 mg tablet 81 mg PO DAILY 01/25/19 02/24/24 History cholecalciferol (vitamin D3) 50 2,000 units PO DAILY 01/25/19 02/24/24 History mcg (2,000 unit) tablet multivitamin (One-A-Day Essential 1 tab PO DAILY 01/25/19 02/24/24 History tablet) potassium gluconate 595 mg (99 mg) 595 mg PO DAILY 01/25/19 02/24/24 History tablet furosemide 20 mg tablet 30 mg (1.5 x 20 mg) PO DAILY #135 02/21/24 02/24/24 Rx tabs prednisone 10 mg tablet 40 mg (4 x 10 mg) PO DAILY 7 days 02/21/24 02/24/24 Rx #28 tabs metformin 1,000 mg tablet 1,000 mg PO BIDWMEAL 02/24/24 02/24/24 History phentermine 37.5 mg capsule 37.5 mg PO QAM 02/24/24 02/24/24 History topiramate 50 mg tablet 50 mg PO BID 02/24/24 02/24/24 History Past Med/Surg History Problem List Rhinovirus Pneumonia (Acute) Septic arthritis of knee, left (Acute) Decreased right shoulder range of motion Lymphedema Cellulitis of right lower leg Impaired fasting glucose Plantar wart of left foot Annual physical exam Vitamin D deficiency Dermatitis Acid reflux disease Obesity Medical History Infected sebaceous cyst Tachycardia Surgical History History of tonsillectomy Family History Father Malignant neoplasm of esophagus Myocardial infarction Uncle Myocardial infarction Denies family history of Ovarian cancer Prostate cancer Breast cancer Colorectal cancer Social History Smoking Status: Former smoker Age Started Using Tobacco: 17; Age Quit Using Tobacco: 25; packs per day: 0.5; Second Hand Exposure: No; Do You Dip or Chew Tobacco: No; Hx Alcohol Use: Yes Alcohol type: beer Alcohol Intake Frequency Comment: 5 beers per week Hx Substance Use: No Preferred Language: Lebanese Communication Ability: Effective Vehicle Modification Technician Required: No Beliefs That Will Affect Care: None marital status: Current Living Situation: Spouse current occupational status: employed current occupation: self employeed How many Children do You have: 0 Other Information That Helps Us Care for You: No Feels Safe at Home: Yes Safety Concerns: Feels Safe At This Time Childhood Exposure to Second-Hand Smoke: Yes Diet: regular caffeine: Yes Dental Care, Regularly: Yes Physical Activity Frequency: Daily Seatbelt Use: never Sunscreen Use: No Assistive Devices: Glasses Review of Systems All systems reviewed & are unremarkable except as noted in HPI & below. Physical Exam On physical examination of the left knee, he has a large soft tissue envelope. He is decreased range of motion of his knee is mostly secondary to pain. There is not much erythema at this time.. Constitutional WD/WN, vitals as above Eyes PERRL, conjunctivae normal, anicteric sclerae ENMT external ear and nose normal, oropharynx normal Neck trachea midline, no thyromegaly Respiratory normal respiratory effort Cardiovascular RRR, no murmur, no edema Gastrointestinal (Abdomen) normal bowel sounds, soft, nontender, no hepatosplenomegaly Psychiatric A+Ox3, euthymic affect Results & Data Results & Data Laboratory Results . Diagnostic Findings X-rays of the left knee were reviewed and it does show advanced osteoarthritis with joint space narrowing osteophyte formation Synovial fluid cell count showed a white blood cell count of over 210,000.. PG Care Time/CCT Total # of Minutes Spent Total Time Spent with Patient: Total time spent is greater than 50% in coordination of care (as documented) at patient's floor/unit and/or counseling patient: Coding Level of Care Code 62809 IN/OBS CONSULT LVL 4,60M (56 - DECISION FOR SURGERY) Diagnoses Septic arthritis of knee, left M00.9
[2024-02-25] MEDS: ASPIRIN 81 MG ECTAB PO SCH (07:20)
--- NOTE | 2024-02-25 09:27 | Infectious Disease Consult ---
Date of Consultation February 25, 2024 ATTEMPTED TO SEE PATIENT LIVE BUT HE IS IN OR Assessment & Plan Plan #Left perihilar pneumonia #Strep pneumo bacteremia #Left knee septic arthritis #Recent rhinovirus infection MICROBIOLOGY 02/23 BCX GPC in chains/pairs 02/23 synovial fluid CX P, WBC [id number] ANTIBIOTICS Ceftriaxone 2G IV DAILY 02/24- Vancomycin, Cefepime in ED on 02/23 59 yo M with h/o PMH obesity BMI 30, COPD and GERD who presented to the [facility] ED on 02/24/2024 due to ongoing/progressive left knee pain and swelling. ID consulted for bacteremia and left knee septic arthritis. Patient's symptoms started with URI and he was dx with rhinovirus at PCP's office on 02/21/2024. PCP prescribed a prednisone taper. During that visit he also c/o right shoulder pain, He was pulling an arrow out of a target when he heard a snap per notations. The patient then began having significant knee pain and went to UC on 02/22, Xray negative for acute fracture or dislocation. Moderate to large knee effusion with intra-articular loose bodies. Severe tricompartmental osteoarthritis. In the ED, HDS but with tachycardia. Initial lab Labs were significant for a leukocytosis of 34 with neutrophil predominance, Cr 1.29 CRP 38, ESR 73, lactate normal, 7.4, PCT 2.15, with Lyme disease screen negative. 02/23 Blood cultures are now growing GPC in Chains. ED performed joint aspiration of the left knee, with noted purulent aspiration. Synovial analysis wbc [id number], 87%pmns, 13% monos, RBC [id number] CXR showed patchy left perihilar airspace opacity, trace left pleural effusion. Orthopaedics has been consulted and planning to take patient to OR for I+D today. RECOMMEND: -C/W Ceftriaxone 2G IV Daily -Hospital guidelines not recommending to repeat blood cultures d/t shortage but given c/f seeding would recommend another set to ensure clearance (can order these at 48-72 hours sarah) -Await OR findings and cultures -Follow arthrocentesis 02/23 cx ID doesnt round on weekends. Dr. Pete to start service on Wednesday Sandhya Garcia MD Infectious Diseases Consultation Information Consultation was provided via telemedicine using two-way real-time interactive telecommunication between the patient and the telemedicine provider. For the duration of the visit, the provider was performing the assessment from a different facility than the patient. This includesuse of bluetooth stethoscope forauscultationperformed by the telepresenter that the telemedicine provider can hear if described in the physical exam. Occasional Caregiver contact information: Please call [facility] [phone]. (Phone Number For Physician Use Only) After establishing a telemedicine visit, patient was: Patient was verified with two unique identifiers, Patient/authorized rep acknowledged consent and understanding and Gave permission to continue telehealth session Time Spent with Patient: Initial => 55 min History of Present Illness Reason for Consultation: septic arthritis Strep bacteremia Requesting Physician: Dr. Choudhury Attending Physician: Solange Choudhury MD History of Present Illness 59 yo M with h/o PMH obesity BMI 30, COPD and GERD who presented to the [facility] ED on 02/24/2024 due to ongoing/progressive left knee pain and swelling. ID consulted for bacteremia and left knee septic arthritis. Patient's symptoms started with URI and he was dx with rhinovirus at PCP's office on 02/21/2024. PCP prescribed a prednisone taper. During that visit he also c/o right shoulder pain, He was pulling an arrow out of a target when he heard a snap per notations. The patient then began having significant knee pain and went to UC on 02/22, Xray negative for acute fracture or dislocation. Moderate to large knee effusion with intra-articular loose bodies. Severe tricompartmental osteoarthritis. In the ED, HDS but with tachycardia. Initial lab Labs were significant for a leukocytosis of 34 with neutrophil predominance, Cr 1.29 CRP 38, ESR 73, lactate normal, 7.4, PCT 2.15, with Lyme disease screen negative. 02/23 Blood cultures are now growing GPC in Chains. ED performed joint aspiration of the left knee, with noted purulent aspiration. Synovial analysis wbc [id number], 87%pmns, 13% monos, RBC [id number] CXR showed patchy left perihilar airspace opacity, trace left pleural effusion. Orthopaedics has been consulted and planning to take patient to OR for I+D today. Allergies Allergy/AdvReac Type Severity Reaction Status Date / Time No Known Allergies Allergy Verified 02/24/24 14:50 Home Medications Medication Instructions Recorded Confirmed Type aspirin 81 mg tablet 81 mg PO DAILY 01/25/19 02/24/24 History cholecalciferol (vitamin D3) 50 2,000 units PO DAILY 01/25/19 02/24/24 History mcg (2,000 unit) tablet multivitamin (One-A-Day Essential 1 tab PO DAILY 01/25/19 02/24/24 History tablet) potassium gluconate 595 mg (99 mg) 595 mg PO DAILY 01/25/19 02/24/24 History tablet furosemide 20 mg tablet 30 mg (1.5 x 20 mg) PO DAILY #135 02/21/24 02/24/24 Rx tabs prednisone 10 mg tablet 40 mg (4 x 10 mg) PO DAILY 7 days 02/21/24 02/24/24 Rx #28 tabs metformin 1,000 mg tablet 1,000 mg PO BIDWMEAL 02/24/24 02/24/24 History phentermine 37.5 mg capsule 37.5 mg PO QAM 02/24/24 02/24/24 History topiramate 50 mg tablet 50 mg PO BID 02/24/24 02/24/24 History Patient History Medical History (Updated 02/25/24 @ 13:48 by Yahir Holguin MD) Bacteremia Rhinovirus Pneumonia Septic arthritis of knee, left Encounter for pre-operative examination Infected sebaceous cyst Tachycardia Surgical History History of tonsillectomy Family History Father Malignant neoplasm of esophagus Myocardial infarction Uncle Myocardial infarction Denies family history of Ovarian cancer Prostate cancer Breast cancer Colorectal cancer Social History Smoking Status: Former smoker Age Started Using Tobacco: 17; Age Quit Using Tobacco: 25; packs per day: 0.5; Second Hand Exposure: No; Do You Dip or Chew Tobacco: No; Hx Alcohol Use: Yes Alcohol type: beer Alcohol Intake Frequency Comment: 5 beers per week Hx Substance Use: No Preferred Language: [place] Islander Communication Ability: Effective Drafter Apprentice Required: No Beliefs That Will Affect Care: None marital status: Current Living Situation: Spouse current occupational status: employed current occupation: self employeed How many Children do You have: 0 Other Information That Helps Us Care for You: No Feels Safe at Home: Yes Safety Concerns: Feels Safe At This Time Childhood Exposure to Second-Hand Smoke: Yes Diet: regular caffeine: Yes Dental Care, Regularly: Yes Physical Activity Frequency: Daily Seatbelt Use: never Sunscreen Use: No Assistive Devices: Cane Results & Data Vital Signs (Past 12 Hours) Vital Signs Temp Pulse Pulse Resp BP Pulse Ox O2 Del Method 02/25/24 08:20 36.9 C 99 H 18 123/77 97 Room Air 02/25/24 07:17 Room Air 02/25/24 06:59 112 H 02/25/24 04:21 37.2 C 106 H 20 126/81 93 Room Air 02/25/24 00:13 36.6 C 97 H 20 118/76 98 Room Air 02/24/24 21:56 103 H Laboratory Results Laboratory Results - last 48 hr 02/24/24 02/24/24 02/24/24 12:30 12:30 13:25 WBC 34.01 H* RBC 4.59 L Hgb 13.6 L Hct 41.0 L MCV 89.3 MCH 29.6 MCHC 33.2 RDW Std Deviation 41.4 RDW Coeff of Elham 12.6 Plt Count 253 MPV 10.1 Immature Gran % (Auto) 0.6 Neut % (Auto) 95.0 Lymph % (Auto) 1.8 Hendry % (Auto) 2.2 Eos % (Auto) 0.0 Baso % (Auto) 0.4 Neut # (Auto) 32.35 H Lymph # (Auto) 0.60 L [place] # (Auto) 0.74 H Eos # (Auto) 0.00 Baso # (Auto) 0.12 Immature Gran # (Auto) 0.20 ESR 73 H PT INR Sodium 135 L Potassium 4.1 Chloride 104 Carbon Dioxide 22 Anion Gap 9 BUN 29 H Creatinine 1.29 Est Cr Clr Drug Dosing 87.9 Est GFR ( Amer) 69.4 Est GFR (Non-Af Amer) 59.9 BUN/Creatinine Ratio 22.5 H Glucose 130 H Lactate 1.0 Uric Acid 7.4 H Calcium 9.2 Magnesium Total Bilirubin 1.1 H AST 16 ALT 15 Alkaline Phosphatase 79 C-Reactive Protein 38.04 H Total Protein 6.8 Albumin 3.2 L Globulin 3.6 Albumin/Globulin Ratio 0.9 Procalcitonin 2.15 H Cancelled Urine Color Urine Appearance Urine pH Ur Specific [place] Urine Protein Urine Glucose (UA) Urine Ketones Urine Blood Urine Nitrite Urine Bilirubin Urine Urobilinogen Ur Leukocyte Esterase Urine RBC Urine WBC Ur Epithelial Cells Urine Bacteria Fluid Comment Synovial Source Synovial Color Synovial Appearance Synovial WBC (Auto) Synovial RBC (Auto) Synovial Polynuclear % Synovial Mononuclear % Lyme Disease Screen Negative Streptococcus sp PCR Strep pneumoniae (PCR) Bld Cult ID Panel PCR 02/24/24 02/24/24 02/24/24 14:41 21:45 Unknown WBC RBC Hgb Hct MCV MCH MCHC RDW Std Deviation RDW Coeff of Elham Plt Count MPV Immature Gran % (Auto) Neut % (Auto) Lymph % (Auto) [place] % (Auto) Eos % (Auto) Baso % (Auto) Neut # (Auto) Lymph # (Auto) [place] # (Auto) Eos # (Auto) Baso # (Auto) Immature Gran # (Auto) ESR PT INR Sodium Potassium Chloride Carbon Dioxide Anion Gap BUN Creatinine Est Cr Clr Drug Dosing Est GFR ( Amer) Est GFR (Non-Af Amer) BUN/Creatinine Ratio Glucose Lactate Uric Acid Calcium Magnesium Total Bilirubin AST ALT Alkaline Phosphatase C-Reactive Protein Total Protein Albumin Globulin Albumin/Globulin Ratio Procalcitonin Urine Color Yellow Urine Appearance Clear Urine pH 5.5 Ur Specific [place] 1.015 Urine Protein 1+ H Urine Glucose (UA) Negative Urine Ketones Negative Urine Blood 2+ H Urine Nitrite Negative Urine Bilirubin Negative Urine Urobilinogen Negative Ur Leukocyte Esterase Negative Urine RBC 6-10 H Urine WBC 0-5 Ur Epithelial Cells 0-2 Urine Bacteria 1+ H Fluid Comment Synovial Source Knee Synovial Color [place]en Synovial Appearance Turbid Synovial WBC (Auto) 186875 H Synovial RBC (Auto) 67614 Synovial Polynuclear % 86.9 Synovial Mononuclear % 13.1 Lyme Disease Screen Streptococcus sp PCR DETECTED A Strep pneumoniae (PCR) DETECTED A Bld Cult ID Panel PCR See PCR Comment 02/25/24 03:51 WBC 28.88 H RBC 4.31 L Hgb 13.0 L Hct 38.0 L MCV 88.2 MCH 30.2 MCHC 34.2 RDW Std Deviation 42.0 RDW Coeff of Elham 12.8 Plt Count 245 MPV 10.0 Immature Gran % (Auto) 0.7 Neut % (Auto) 92.0 Lymph % (Auto) 4.1 [place] % (Auto) 3.0 Eos % (Auto) 0.0 Baso % (Auto) 0.2 Neut # (Auto) 26.58 H Lymph # (Auto) 1.17 L [place] # (Auto) 0.88 H Eos # (Auto) 0.00 Baso # (Auto) 0.05 Immature Gran # (Auto) 0.20 ESR PT 14.4 H INR 1.4 H Sodium 133 L Potassium 4.1 Chloride 104 Carbon Dioxide 22 Anion Gap 7 BUN 24 H Creatinine 1.34 Est Cr Clr Drug Dosing 84.6 Est GFR ( Amer) 66.3 Est GFR (Non-Af Amer) 57.2 BUN/Creatinine Ratio 17.9 Glucose 113 H Lactate Uric Acid Calcium 8.9 Magnesium 1.7 Total Bilirubin 0.6 D AST 11 L ALT 13 Alkaline Phosphatase 77 C-Reactive Protein Total Protein 6.2 Albumin 2.9 L Globulin 3.3 Albumin/Globulin Ratio 0.9 Procalcitonin Urine Color Urine Appearance Urine pH Ur Specific [place] Urine Protein Urine Glucose (UA) Urine Ketones Urine Blood Urine Nitrite Urine Bilirubin Urine Urobilinogen Ur Leukocyte Esterase Urine RBC Urine WBC Ur Epithelial Cells Urine Bacteria Fluid Comment Synovial Source Synovial Color Synovial Appearance Synovial WBC (Auto) Synovial RBC (Auto) Synovial Polynuclear % Synovial Mononuclear % Lyme Disease Screen Streptococcus sp PCR Strep pneumoniae (PCR) Bld Cult ID Panel PCR Diagnostic Findings Chest X-Ray 02/24/24 13:29 XR chest 1V portable HISTORY: Cough. r/o pneumonia COMPARISON: None. FINDINGS: No pneumothorax. The cardiac silhouette is top normal in size. No acute fractures identified. There is a trace left pleural effusion. Small linear density at the right medial lung base favors subsegmental atelectasis are scarring. Otherwise, the right lung appears clear. There is a patchy left perihilar airspace opacity. This likely represents a pneumonia. IMPRESSION: 1. Patchy left perihilar airspace opacity which likely represents a pneumonia. 1-2 month chest x-ray follow-up recommended to ensure resolution. 2. Trace left pleural effusion. ACT 112: Negative or not required by law. Electronically signed by: Berhane Nance M.D. 02/24/2024 1:45 PM Medications Administered Current Inpatient Medications Acetaminophen (Acetaminophen 325 Mg Tab) 650 mg PO Q6H PRN PRN Reason: pain(1-4),headache,fever Stop: 03/25/24 14:22 Last Admin: 02/24/24 17:48 Dose: 650 mg Albuterol (Albuterol 0.5% Neb Soln 2.5 Mg/0.5 Ml Vial) 2.5 mg NEB Q6R PRN; Protocol PRN Reason: wheezing, SOB Stop: 03/25/24 18:59 Aspirin (Aspirin 81 Mg Ectab) 81 mg PO DAILY [facility] Stop: 03/26/24 08:59 Last Admin: 02/25/24 07:20 Dose: 81 mg Vancomycin HCl 1,250 mg/ (Sodium Chloride) 275 mls @ 200 mls/hr IV Q12H [facility] Stop: 04/07/24 05:59 Last Infusion: 02/25/24 07:10 Dose: Infused Lactated Ringer's (Lr) 1,000 mls @ 100 mls/hr IV .Q10H [facility] Stop: 02/26/24 03:14 Last Admin: 02/25/24 08:35 Dose: 100 mls/hr Ceftriaxone Sodium (Rocephin) 2,000 mg in 50 mls @ 100 mls/hr IV Q24H [facility] Stop: 03/02/24 21:59 Last Infusion: 02/24/24 22:30 Dose: Infused Miscellaneous Information (Vancomycin Consult Active) 1 each N/A UD PRN PRN Reason: Consult Stop: 03/25/24 14:06 Morphine Sulfate (Morphine Sulfate 2 Mg/Ml Carp) 2 mg IV Q4H PRN PRN Reason: Pain(5+) Stop: 03/09/24 14:22 Last Admin: 02/24/24 20:36 Dose: 2 mg Naloxone HCl (Naloxone Hcl 0.4 Mg/1 Ml Vial/Carp) 0.4 mg IV Q5M PRN PRN Reason: oversedation/respiratory depre Stop: 03/25/24 14:22 Topiramate (Topiramate 50 Mg Tab) 50 mg PO BID [facility] Stop: 03/25/24 20:59 Last Admin: 02/25/24 07:20 Dose: 50 mg
--- NOTE | 2024-02-25 12:16 | Pharmacy Report ---
Pharmacy PK ABX Note - Date of Service February 25, 2024 - Assessment and Plan Assessment 59 year old M admitted for ongoing/progressive knee pain and swelling. Purulent fluid noted with joint aspiration of left knee done in ED. ID has been consulted and noted patient to have septic arthritis of the left knee, pneumonia, and strep pneumo bacteremia. Vancomycin and Rocephin have been started. Pertinent microbiologic data includes: probable S.pneumoniae growth in the left knee and in the blood. (BC ID2 confirms S.pneumoniae in blood). Urine and sputum cultures are pending. Day # 1 of antimicrobial therapy. Plan Vancomycin * Loading dose: 2750 mg IV x 1 * Maintenance dose: 1000 mg IV every 12 hours * Regimen is predicted to achieve target AUC/INGRID of 400-600 mg/L.hr * Trough level ordered for: 02/27/24 with am labs Pharmacy will continue to follow and will adjust dose/frequency as necessary. Thank you. Pharmacy has transitioned to AUC monitoring for vancomycin. AUC/INGRID is the preferred PK/PD target and is associated with decreased risk of nephrotoxicity compared to traditional trough targets.
[2024-02-25] MEDS ORDERED: DEXAMETHASONE SOD INJ 4 MG/ML VIAL ONE (12:53)
[2024-02-25] MEDS ORDERED: fentaNYL citrate PF 100 MCG/2 ML VIAL ONE (12:53)
[2024-02-25] MEDS ORDERED: PROPOFOL IV EMULSION 10 MG/ML 20 ML VIAL IV ONE (12:53)
[2024-02-25] MEDS ORDERED: MIDAZOLAM HCL 1 MG/ML 2ML VIAL ONE ×2 (12:53→15:03)
[2024-02-25] MEDS ORDERED: ONDANSETRON INJ 2 MG/ML 2 ML VIAL ONE (12:53)
[2024-02-25] MEDS ORDERED: LIDOCAINE 2% 2 ML VIAL/AMP(20MG/ML) INFIL ONE (12:53)
--- NOTE | 2024-02-25 13:18 | Anesthesiology Consultation ---
Date of Service February 25, 2024 Assessment & Plan (1) Encounter for pre-operative examination: Chart Review Chart Review: Acceptable Risk for Surgery and Patient NOT seen in Pre Admission Testing Consults Requested none History Surgery Operation Date: 02/25/24 08:20 Proposed Procedures p Left Knee Arthroscopic Incision and Drainage - Nicola Pollard, Height/Weight Height: 6 ft 1 in Weight: 102.7 kg Allergies Allergy/AdvReac Type Severity Reaction Status Date / Time No Known Allergies Allergy Verified 02/24/24 14:50 Medications Home Medications Medication Instructions Recorded Confirmed Last Taken aspirin 81 mg tablet 81 mg PO DAILY 01/25/19 02/24/24 02/23/24 cholecalciferol (vitamin D3) 50 2,000 units PO DAILY 01/25/19 02/24/24 02/23/24 mcg (2,000 unit) tablet multivitamin (One-A-Day Essential 1 tab PO DAILY 01/25/19 02/24/24 02/23/24 tablet) potassium gluconate 595 mg (99 mg) 595 mg PO DAILY 01/25/19 02/24/24 02/23/24 tablet furosemide 20 mg tablet 30 mg (1.5 x 20 mg) PO DAILY #135 02/21/24 02/24/24 02/23/24 tabs prednisone 10 mg tablet 40 mg (4 x 10 mg) PO DAILY 7 days 02/21/24 02/24/24 02/24/24 #28 tabs metformin 1,000 mg tablet 1,000 mg PO BIDWMEAL 02/24/24 02/24/24 02/23/24 phentermine 37.5 mg capsule 37.5 mg PO QAM 02/24/24 02/24/24 02/23/24 topiramate 50 mg tablet 50 mg PO BID 02/24/24 02/24/24 02/23/24 Active Medications Generic Name Dose Route Start Last Admin Trade Name Freq PRN Reason Stop Dose Admin Acetaminophen 650 mg 02/24/24 14:23 02/24/24 17:48 Acetaminophen 325 Mg Tab PO 03/25/24 14:22 650 mg Q6H PRN Administration pain(1-4),headache,fever Aspirin 81 mg 02/25/24 09:00 02/25/24 07:20 Aspirin 81 Mg Ectab PO 03/26/24 08:59 81 mg DAILY [facility] Administration Lactated Ringer's 1,000 mls @ 100 mls/hr 02/24/24 21:15 02/25/24 12:40 Lr IV 02/26/24 03:14 0 mls/hr .Q10H [facility] Infusion Ceftriaxone Sodium 2,000 mg in 50 mls @ 100 mls/hr 02/24/24 22:00 02/24/24 22:30 Rocephin IV 03/02/24 21:59 Infused Q24H [facility] Infusion Morphine Sulfate 2 mg 02/24/24 14:23 02/24/24 20:36 Morphine Sulfate 2 Mg/Ml Carp IV 03/09/24 14:22 2 mg Q4H PRN Administration Pain(5+) Topiramate 50 mg 02/24/24 21:00 02/25/24 07:20 Topiramate 50 Mg Tab PO 03/25/24 20:59 50 mg BID SAM Administration NPO Date Last Intake of Fluids: 02/24/24 Time Last Intake of Fluids: 23:55 Date Last Intake of Solids: 02/24/24 Time Last Intake of Solids: 22:00 Past Medical History Medical History (Updated 02/25/24 @ 13:48 by Yahir Holguin MD) Bacteremia Rhinovirus Pneumonia Septic arthritis of knee, left Encounter for pre-operative examination Infected sebaceous cyst Tachycardia Assessment & Plan (1) Septic arthritis of knee, left: (2) Pneumonia: Plan #Left perihilar pneumonia #Strep pneumo bacteremia #Left knee septic arthritis #Recent rhinovirus infection MICROBIOLOGY 02/23 BCX GPC in chains/pairs 02/23 synovial fluid CX P, WBC [id number] ANTIBIOTICS Ceftriaxone 2G IV DAILY 02/24- Vancomycin, Cefepime in ED on 02/23 59 yo M with h/o PMH obesity BMI 30, COPD and GERD who presented to the [facility] ED on 02/24/2024 due to ongoing/progressive left knee pain and swelling. ID consulted for bacteremia and left knee septic arthritis. Past Family History Family History Father Malignant neoplasm of esophagus Myocardial infarction Uncle Myocardial infarction Denies family history of Ovarian cancer Prostate cancer Breast cancer Colorectal cancer Past Surgical History Surgical History History of tonsillectomy Past Anesthesia History No Hx of Anesthesia Complications and No Family Hx of Anesthesia Complications History of PONV No Hx of PONV and No Hx of Motion Sickness Social History Smoking Status: Former smoker Do You Dip or Chew Tobacco: No Hx Alcohol Use: Yes Alcohol type: beer alcohol intake frequency: a few times a week Hx Substance Use: No substance use type: does not use Physical Exam Vital Signs Last Vital Signs Temp 37.2 C 02/25/24 12:35 Pulse 100 H 02/25/24 12:35 Resp 20 02/25/24 12:35 BP 166/98 H 02/25/24 12:35 Pulse Ox 97 02/25/24 12:35 O2 Del Method Room Air 02/25/24 12:35 Testing Laboratory Results 02/25/24 03:51 02/25/24 03:51 PT 14.4 Seconds (9.0-12.0) H 02/25/24 03:51 INR 1.4 (0.9-1.1) H 02/25/24 03:51 Urine Color Yellow 02/24/24 21:45 Urine Appearance Clear (Clear) 02/24/24 21:45 Urine pH 5.5 (4.5-7.5) 02/24/24 21:45 Ur Specific [place] 1.015 (1.000-1.030) 02/24/24 21:45 Urine Protein 1+ (Negative) H 02/24/24 21:45 Urine Glucose (UA) Negative (Negative) 02/24/24 21:45 Urine Ketones Negative (Negative) 02/24/24 21:45 Urine Nitrite Negative (Negative) 02/24/24 21:45 Ur Leukocyte Esterase Negative (Negative) 02/24/24 21:45 Urine RBC 6-10 /hpf (0-2) H 02/24/24 21:45 Urine WBC 0-5 /hpf (0-5) 02/24/24 21:45 Ur Epithelial Cells 0-2 /hpf (0-2) 02/24/24 21:45 02/24/24 21:45 Gram Stain - Final Sputum, Expectorated Sputum Culture - Preliminary Light normal mac present, final report to follow. 02/24/24 Unknown Gram Stain - Final Knee,Left Aerobic and Anaerobic Culture - Preliminary Probable Strep. pneumoniae 02/24/24 14:41 Aerobic Blood Culture - Preliminary Blood Streptococcus pneumoniae Anaerobic Blood Culture - Preliminary Gram positive cocci in chains 02/24/24 14:41 Aerobic Blood Culture - Preliminary Blood Gram positive cocci in chains Anaerobic Blood Culture - Preliminary Gram positive cocci in chains Electrocardiogram Date: 02/18/24 Findings: + NSR @ (97) SR. Possible LAE. Septal myocardia infarct, probably old. Chest X-Ray Date: 02/24/24 XR chest 1V portable HISTORY: Cough. r/o pneumonia COMPARISON: None. FINDINGS: No pneumothorax. The cardiac silhouette is top normal in size. No acute fractures identified. There is a trace left pleural effusion. Small linear density at the right medial lung base favors subsegmental atelectasis are scarring. Otherwise, the right lung appears clear. There is a patchy left perihilar airspace opacity. This likely represents a pneumonia. IMPRESSION: 1. Patchy left perihilar airspace opacity which likely represents a pneumonia. 1-2 month chest x-ray follow-up recommended to ensure resolution. 2. Trace left pleural effusion
--- NOTE | 2024-02-25 13:30 | History & Physical Bridge Note ---
Date of Service February 25, 2024 History & Physical Bridge Note I have examined the patient, reviewed the History & Physical and in the interval since the performance of the History & Physical I have noted the following changes of clinical significance: no changes noted
[2024-02-25] MEDS ORDERED: PROMETHAZINE HCL 6.25 MG in SODIUM CHLORIDE 0.9% 50 ML IV PRN ×2 (13:50→14:16)
[2024-02-25] MEDS ORDERED: HYDROmorphone INJ 1 MG/ML SYRINGE IV PRN ×2 (13:50→14:16)
[2024-02-25] MEDS ORDERED: ATROPINE SULFATE 0.1 MG/ML 10ML SYR IV PRN ×2 (13:50→14:16)
[2024-02-25] MEDS ORDERED: fentaNYL citrate PF 100 MCG/2 ML VIAL IV PRN (13:50)
[2024-02-25] MEDS ORDERED: ePHEDrine sulfate 50 MG/ML AMP IV PRN (13:50)
[2024-02-25] MEDS ORDERED: ONDANSETRON INJ 2 MG/ML 2 ML VIAL IV PRN (13:50)
[2024-02-25] MEDS ORDERED: HYDROmorphone INJ 2 MG/ML SYR/VIAL ONE (15:04)
[2024-02-25] MEDS ORDERED: ROCURONIUM BROMIDE 10 MG/ML 5 ML VIAL IV ONE (15:18)
[2024-02-25] MEDS ORDERED: ACETAMINOPHEN 1000 MG/100 ML IV IV ONE (15:18)
[2024-02-25] MEDS: EpINEphrine HCL INJ 1 MG/ML 1ML SYRINGE IR ONE (15:34)
[2024-02-25] MEDS ORDERED: SUGAMMADEX SODIUM 200 MG/2 ML VIAL IV ONE (15:36)
[2024-02-25] MEDS ORDERED: HYDROCORTISONE SOD SUCCINATE 100 MG/2 ML VIAL ONE (15:39)
[2024-02-25] MEDS ORDERED: ADENOSINE IV SOLN 3 MG/ML 2 ML VIAL IV ONE ×2 (15:39→16:18)
[2024-02-25] MEDS ORDERED: NOREPINEPHRINE BITARTRATE 1 MG/ML 4 ML VIAL IV ONE (15:39)
--- NOTE | 2024-02-25 15:45 | Operative Report ---
PG Post Operative Report Pre & Post Diagnosis Operation Date: 02/25/24 08:20 Pre-Op Diagnosis: left Septic arthritis of knee Post-Op Diagnosis: left Septic arthritis of knee I identified the patient and participated in the time-out.: Yes Procedure Operation Date: 02/25/24 08:20 Actual Procedures p Left Knee Arthroscopic irrigation and debridement (Left) - Nicola Pollard DO Surgeon Nicola Pollard DO Detonator Assembler None Estimated Blood Loss 5 Findings Consistent with Post-Op Diagnosis Specimens Left knee cultures Description of Procedure On February 25, 2024 Luis Alfredo was brought down from his hospital room to the preoperative holding area. The operative extremity identified and signed. He was taken back the operating room and laid on table in supine position. He was put under general anesthesia. The left knee was prepped and draped sterile fashion. A timeout was done. The patient and the operative extremity was prope rly identified. Due to the size of his leg the scope was done off tourniquet. The scope was placed into the lateral parapatellar portal. A large amount of very cloudy and purulent fluid was removed from the joint. This was cultured. A medial parapatellar portal was then made under direct visualization. A shaver was placed. A debridement was done of the intra-articular structures. I was car eful not to incite too much bleeding because we were off tourniquet due to the size of his leg. A total of 6 L of normal saline solution was ran through his knee joint. Time was spent ensuring that all infectious appearing tissue and a cloudy fluid was removed from the knee. After 6 L was run through the knee, arthroscopic instruments removed. Portal sites were closed with 4-0 nylon suture. He was then placed in a soft compressive dressing. He was then extubated and transferred to a hospital bed. He was taken to the postanesthesia care unit in stable condition. He tolerated the procedure well. I attest to the content of the Intraoperative Record and any orders documented therein. Any exceptions are noted below.
[2024-02-25] MEDS: VERAPAMIL HCL 2.5 MG/ML 2 ML VIAL IV ONE ×2 (16:28→17:21)
[2024-02-25] MEDS ORDERED: STAT IV Infusion **Titration per Protocol STA (16:36)
[2024-02-25] MEDS ORDERED: PHENYLEPHRINE 100MCG/ML 10ML SYR IV ONE (16:50)
[2024-02-25] MEDS: dilTIAZem HCL 125 MG in DEXTROSE 5% 100 ML IV SCH (16:55)
--- NOTE | 2024-02-25 17:03 | Anesthesiology Progress Note ---
Date of Service February 25, 2024 Anesthesia Post Procedure Vital Signs Vital Signs: Temp Pulse Pulse Pulse Resp BP Pulse Ox 02/25/24 16:30 123 H 24 155/89 H 98 02/25/24 16:20 195 H 24 90/75 L 96 02/25/24 16:10 190 H 25 H 80/63 L 98 02/25/24 16:00 192 H 25 H 130/90 98 02/25/24 15:55 36.5 C 128 H 23 152/79 H 98 02/25/24 12:35 37.2 C 100 H 20 166/98 H 97 02/25/24 11:35 37.4 C 105 H 18 147/88 H 98 02/25/24 08:20 36.9 C 99 H 18 123/77 97 02/25/24 07:17 02/25/24 06:59 112 H 02/25/24 04:21 37.2 C 106 H 20 126/81 93 02/25/24 00:13 36.6 C 97 H 20 118/76 98 02/24/24 21:56 103 H 02/24/24 21:04 36.8 C 101 H 20 128/76 93 02/24/24 17:50 103 H 02/24/24 17:33 02/24/24 17:33 36.7 C 97 H 16 144/85 H 97 02/24/24 17:31 36.7 C 97 H 16 144/85 H 97 02/24/24 17:31 Pulse Ox O2 Del Method O2 Del Method O2 Flow Rate 02/25/24 16:30 Oxymask 02/25/24 16:20 Oxymask 02/25/24 16:10 Oxymask 02/25/24 16:00 Oxymask 02/25/24 15:55 Oxymask 02/25/24 12:35 Room Air 02/25/24 11:35 Room Air 02/25/24 08:20 Room Air 02/25/24 07:17 Room Air 02/25/24 06:59 02/25/24 04:21 Room Air 02/25/24 00:13 Room Air 02/24/24 21:56 02/24/24 21:04 Room Air 02/24/24 17:50 02/24/24 17:33 Room Air 02/24/24 17:33 Room Air 02/24/24 17:31 Room Air 02/24/24 17:31 97 Room Air Pain Intensity Left Knee: Pain Intensity: 8 Transfer of Care Handoff Completed per policy Notes Mental Status: alert / awake / arousable Patient Amnestic to Procedure: Yes Nausea / Vomiting: adequately controlled Pain: adequately controlled Airway Patency, RR, SpO2: stable & adequate BP & HR: see Notes below Hydration State: stable & adequate Anesthetic Complications: no major complications apparent and see Notes below Notes: Intraopertaively, patient entered SVT with HR ~190, systolic pressures 70s. T his was broken with 1x dose of adenosine 12mg while preparations were made for cardioversion. Norepinephrine drip started intraoperatively. The remainder of the case proceeded with the patient hemodynamically stable. In PACU, the patient again entered SVT, HR ~190-200 with low normal BP. He was awake and asymptomatic with this tachycardia. Vagal maneuvers were unsuccessful, a second bolus of adenoside 12mg did break the arrhythmia for a few minutes only. The patient received a 5mg bolus dose of verapamil and a diltiazem drip was ordered in pacu. This intervention seems to have broken his tachyarrhythmia long enough for transfer to the ICU. His BP remains adequate, though we will maintain the norepinephrine drip until it is clear he is able to tolerate the diltiazem drip with hemodynamic stability. I have spoken with the ICU attending, cardiology and the admitting hospitalist, all of whom will continue to workup and manage these conditions on transfer to the ICU.
[2024-02-25] MEDS ORDERED: VANCOMYCIN HCL 1,000 MG in SODIUM CHLORIDE 0.9% 250 ML IV SCH (18:00)
[2024-02-25] MEDS: metFORMIN HCL 500 MG TAB PO SCH (18:37)
--- NOTE | 2024-02-25 21:02 | Critical Care Consultation ---
Date of Consultation February 25, 2024 Assessment & Plan (1) Septic arthritis of knee, left: Status post I&D with Ortho. Continue with antibiotic coverage as discussed below. (2) Bacteremia: Blood cultures 02/23 with GPC in chains, and Synovial fluid culture from left knee with probable strep pneumoniae. Possible pneumonia on chest x-ray as well and patient did undergo treatment with prednisone taper on 02/20 for rhinovirus in the outpatient. Currently ID following And appreciate recommendations. Continue with ceftriaxone (3) SVT (supraventricular tachycardia): Improved. Patient currently in sinus rhythm with multiple PACs. He did not undergo cardioversion. He was said to be hypotensive at the time with heart rate in the 190s and had been started on a diltiazem drip which is now discontinued. Was temporarily on vasopressor support which is also discontinued. Will continue to monitor in ICU overnight. Continuous monitoring with telemetry. Maximize electrolytes Supervising Physician Co-Signing Physician Notes Patient seen and examined in PACU. Discussed with anesthesia. Reviewed with CLEMENTE. Agree with assessment plan as noted. Please refer to my progress note from 02/25 for additional details History of Present Illness Attending Physician: Solange Choudhury MD History of Present Illness Patient is a 59-year-old male GERD, obesity who presented to the emergency department on 02/23 due to progressive left knee pain and swelling. Patient had been diagnosed with rhinovirus on 02/20 by his PCP and was placed on a prednisone taper. In the ED he was noted to be tachycardic, and x-ray of left knee showed moderate to large knee effusion with intra-articular loose bodies and severe tricompartmental osteoarthritis. Ortho was consulted and patient was scheduled for Arthroscopic irrigation and debridement of the left knee for septic arthritis for which he underwent earlier today. Of note, patient did grow GPC in chains and blood cultures on 02/23 and is undergoing treatment with ceftriaxone and followed with ID. Postoperatively patient went into SVT with heart rate in the 190s and became hypotensive. He was started on Levophed and Cardizem drips in PACU and transferred to ICU. On arrival to the ICU the patient is mildly tachycardic, normotensive. EKG shows sinus rhythm with multiple PACs. Cardizem and Levophed drips are now off, and will remain in ICU for monitoring overnight. On arrival to the ICU the patient is alert and oriented and hemodynamically stable. He denies headache, dizziness, syncope, fevers, chest pain or palpitations, shortness of breath, abdominal pain, nausea vomiting or diarrhea. He does report pain to the left knee which has been ongoing and progressively worse over the past few days. Patient to remain in ICU for management at this time Allergies Allergy/AdvReac Type Severity Reaction Status Date / Time No Known Allergies Allergy Verified 02/24/24 14:50 Home Medications Medication Instructions Recorded Confirmed Type aspirin 81 mg tablet 81 mg PO DAILY 01/25/19 02/24/24 History cholecalciferol (vitamin D3) 50 2,000 units PO DAILY 01/25/19 02/24/24 History mcg (2,000 unit) tablet multivitamin (One-A-Day Essential 1 tab PO DAILY 01/25/19 02/24/24 History tablet) potassium gluconate 595 mg (99 mg) 595 mg PO DAILY 01/25/19 02/24/24 History tablet furosemide 20 mg tablet 30 mg (1.5 x 20 mg) PO DAILY #135 02/21/24 02/24/24 Rx tabs prednisone 10 mg tablet 40 mg (4 x 10 mg) PO DAILY 7 days 02/21/24 02/24/24 Rx #28 tabs metformin 1,000 mg tablet 1,000 mg PO BIDWMEAL 02/24/24 02/24/24 History phentermine 37.5 mg capsule 37.5 mg PO QAM 02/24/24 02/24/24 History topiramate 50 mg tablet 50 mg PO BID 02/24/24 02/24/24 History Patient History Medical History (Updated 02/26/24 @ 02:50 by FREDY Song) Rhinovirus Pneumonia Encounter for pre-operative examination Infected sebaceous cyst Tachycardia Surgical History History of tonsillectomy Family History Father Malignant neoplasm of esophagus Myocardial infarction Uncle Myocardial infarction Denies family history of Ovarian cancer Prostate cancer Breast cancer Colorectal cancer Social History Smoking Status: Former smoker Age Started Using Tobacco: 17; Age Quit Using Tobacco: 25; packs per day: 0.5; Second Hand Exposure: No; Do You Dip or Chew Tobacco: No; Hx Alcohol Use: Yes Alcohol type: beer Alcohol Intake Frequency Comment: 5 beers per week Hx Substance Use: No Preferred Language: Greenlandic Communication Ability: Effective Sorter/Assay Tech Required: No Beliefs That Will Affect Care: None marital status: Current Living Situation: Spouse current occupational status: employed current occupation: self employeed How many Children do You have: 0 Other Information That Helps Us Care for You: No Feels Safe at Home: Yes Safety Concerns: Feels Safe At This Time Childhood Exposure to Second-Hand Smoke: Yes Diet: regular caffeine: Yes Dental Care, Regularly: Yes Physical Activity Frequency: Daily Seatbelt Use: never Sunscreen Use: No Assistive Devices: Cane Review of Systems Review of Systems: All systems reviewed & are unremarkable except as noted in HPI & below Physical Exam Constitutional: cooperative and comfortable; no acute distress Eyes: PERRL, conjunctivae normal, anicteric sclerae ENMT: external ear and nose normal, oropharynx normal Neck: trachea midline, no thyromegaly Respiratory: normal respiratory effort, lungs clear to auscultation Cardiovascular: RRR, no murmur, no edema Gastrointestinal (Abdomen): normal bowel sounds, soft, nontender, no hepatosplenomegaly Musculoskeletal: no cyanosis or clubbing, extremities motor strength 5/5 Skin: Warm and dry. Lymphedema bilaterally to the lower extremities Neurologic: PERRL, EOMI, accommodation nl, no face palsy, no dysarthria Psychiatric: A+Ox3, euthymic affect Results & Data Results & Data Vital Signs (Past 12 Hours) Vital Signs Temp Pulse Pulse Pulse Resp BP BP 02/25/24 18:38 90 20 115/78 02/25/24 18:30 36.6 C 02/25/24 18:24 02/25/24 18:15 130/89 02/25/24 18:15 106 H 23 02/25/24 18:03 90 20 02/25/24 18:01 100/69 02/25/24 17:30 108 H 21 144/87 H 02/25/24 17:20 110 H 21 144/88 H 02/25/24 17:10 113 H 23 134/81 02/25/24 17:00 37.5 C 117 H 19 138/89 02/25/24 16:50 109 H 18 125/92 02/25/24 16:40 114 H 19 126/82 02/25/24 16:30 123 H 24 155/89 H 02/25/24 16:20 195 H 24 90/75 L 02/25/24 16:10 190 H 25 H 80/63 L 02/25/24 16:00 192 H 25 H 130/90 02/25/24 15:55 36.5 C 128 H 23 152/79 H 02/25/24 12:35 37.2 C 100 H 20 166/98 H 02/25/24 11:35 37.4 C 105 H 18 147/88 H Pulse Ox Pulse Ox O2 Del Method O2 Del Method O2 Flow Rate 02/25/24 18:38 94 Room Air 02/25/24 18:30 02/25/24 18:24 94 Room Air 02/25/24 18:15 02/25/24 18:15 95 02/25/24 18:03 93 02/25/24 18:01 02/25/24 17:30 98 Oxymask 4 02/25/24 17:20 98 Oxymask 4 02/25/24 17:10 99 Oxymask 4 02/25/24 17:00 98 Oxymask 6 02/25/24 16:50 99 Oxymask 6 02/25/24 16:40 98 Oxymask 10 02/25/24 16:30 98 Oxymask 10 02/25/24 16:20 96 Oxymask 10 02/25/24 16:10 98 Oxymask 10 02/25/24 16:00 98 Oxymask 10 02/25/24 15:55 98 Oxymask 10 02/25/24 12:35 97 Room Air 02/25/24 11:35 98 Room Air Coding Level of Care Code 44350 IN/OBS CONSULT LVL 2,35M Diagnoses Septic arthritis of knee, left M00.9 Bacteremia R78.81 SVT (supraventricular tachycardia) I47.10 Time Spent (min) 37
[2024-02-26 05:07] LABS: Albumin Globulin Ratio 0.9 (0.9-2); Albumin Level 2.7 gm/dl (3.4-5.0); BUN Creatinine Ratio 19.8 (10-20); Bilirubin,Total 0.5 mg/dl (0.2-1.0); Calcium 8.9 mg/dl (8.6-10.3); Creatinine Clr Calc Pharmacy 89.1 ml/min; Est GFR (African American) 83.2 ml/min; Est GFR (Non-African American) 71.8 ml/min; Globulin 3.1 gm/dl (2.5-4.0); Magnesium 1.7 mg/dl (1.7-2.4); Phosphorus 4.5 mg/dl (2.5-4.9); Potassium 4.4 mmol/L (3.5-5.1); Total Protein 5.8 gm/dl (6.0-8.3)
[2024-02-26 05:17] LABS: INR 1.3 (0.9-1.1); Prothrombin Time 13.6 Seconds (9.0-12.0)
[2024-02-26 05:32] LABS: Basophils # (auto) 0.06 K/uL (0.00-0.20); Basophils % (auto) 0.2 %; Hematocrit (blood only) 37.8 % (42.0-52.0); Hemoglobin 12.6 g/dl (14.0-18.0); Immature Granulocytes # (auto) 0.37 K/uL (0.01-0.20); Immature Granulocytes % (auto) 1.2 %; Lymphocytes % (auto) 3.5 %; Mean Corpuscular Hgb Conc 33.3 g/dL (32.0-36.0); Mean Platelet Volume 10.1 fL (9.4-12.4); Monocytes # (auto) 1.25 K/uL (0.11-0.59); Neutrophils # (auto) 28.51 K/uL (1.40-6.50); Neutrophils % (auto) 91.1 %; Platelet Count 247 K/uL (130-400); RDW Coefficient of Variation 12.4 % (11.5-14.5); RDW Standard Deviation 40.8 fL (36.4-46.3); White Blood Count 31.29 K/ul (4.8-10.8)
--- NOTE | 2024-02-26 06:44 | Orthopedic Progress Note ---
Date of Service February 26, 2024 Assessment & Plan (1) Septic arthritis of knee, left: Overall he is doing well with regards to his left knee. He can be weightbearing as tolerated. He will continue on the IV antibiotics. We are awaiting final cultures. He is also receiving a medical workup to help determine where this septic joint may have seeded from. Veronica Lobato was seen and examined at bedside this morning. Overall he is doing a lot better. His knee hurts a lot less this morning than it did yesterday. He has not been ambulating on it yet. He has no complaints. Review of Systems All systems reviewed & are unremarkable except as noted in HPI & below. Physical Exam Physical examination left knee shows the dressing to be clean and dry. His leg is out full extension. He has active dorsiflexion plantarflexion of his left ankle.. Results & Data Results & Data Laboratory Results . Diagnostic Findings . PG Care Time/CCT Total # of Minutes Spent Total Time Spent with Patient: Total time spent is greater than 50% in coordination of care (as documented) at patient's floor/unit and/or counseling patient: Coding Level of Care Code 86407 Post Operative Follow-Up Diagnoses Septic arthritis of knee, left M00.9
[2024-02-26] MEDS: MAGNESIUM SULFATE / D5W 1 GM/100 ML BAG IV SCH (06:48)
[2024-02-26] MEDS: CHOLECALCIFEROL 25 MCG (1000 UNITS) TAB PO SCH (07:48)
[2024-02-26] MEDS: predniSONE 20 MG TAB PO SCH (07:49)
[2024-02-26] MEDS: FUROSEMIDE 20 MG TAB PO SCH (07:49)
[2024-02-26] MEDS: CEROVITE ADV FORMULA TAB PO SCH (07:49)
--- NOTE | 2024-02-26 07:55 | Critical Care Progress Note ---
Date of Service February 26, 2024 Assessment & Plan (1) SVT (supraventricular tachycardia): (2) Bacteremia: (3) Septic arthritis of knee, left: Plan Impression: 59-year-old male with recent rhinovirus now with pneumococcal bacteremia and likely septic knee. He may have some perihilar infiltrates consistent with pneumonia. 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 He is since converted and is hemodynamically stable with normal heart rate and blood pressure. Recommendations: 1. SVT: Off all medications currently. Will start diltiazem 30 mg p.o. Q6. If recurs, cardiology evaluation would be warranted. 2. Pneumococcal bacteremia with septic arthritis: On Rocephin. Continue for now. Antibiotics per ID. White count elevated today, unclear how much may be demargination due to steroids. Febrile 3. There is no indication for steroids at this point in time. The patient is not experiencing any significant cough, wheezing, or shortness of breath. Prednisone will be discontinued. 4. Patient's critical care issues have resolved. He is stable to transfer to the floor. Critical care will sign off. Feel free to contact us with questions or concerns Admission and Anticipated Discharge Date Admission Date: February 24, 2024 Subjective Patient seen and examined. EMR reviewed. Discussed with bedside critical care nurse and with critical care CLEMENTE overnight. The patient is awake alert and conversant this morning. He denies any pain issues. He is not having any chest pain or palpitations. No syncope or presyncope. He is off all parenteral vasoactive medications. No lower extremity edema. He is been cleared by orthopedics to get out of bed and weight-bear. Review of Systems Review of Systems: All systems reviewed & are unremarkable except as noted in Subjective Physical Exam Constitutional: WD/WN, vitals as above Neck: trachea midline, no thyromegaly Respiratory: normal respiratory effort, lungs clear to auscultation Cardiovascular: RRR, no murmur, no edema Gastrointestinal (Abdomen): normal bowel sounds, soft, nontender, no hepatosplenomegaly Musculoskeletal: Extremities: extremities normal to inspection Skin: no rashes, warm and dry Neurologic: Nonfocal exam Lymphatic: no cervical lymphadenopathy Results & Data Results & Data Vital Signs (Past 12 Hours) Vital Signs Temp Pulse Resp BP Pulse Ox O2 Del Method 02/26/24 06:36 99 H 23 95 02/26/24 06:03 97 H 28 H 96 02/26/24 06:00 146/92 H 02/26/24 05:51 82 26 H 98 02/26/24 05:33 95 H 21 100 02/26/24 05:06 106 H 22 94 02/26/24 05:00 147/101 H 02/26/24 04:54 93 H 27 H 96 02/26/24 04:33 75 26 H 97 02/26/24 04:21 104 H 25 H 98 02/26/24 03:30 36.8 C 69 28 H 96 02/26/24 03:09 112 H 22 94 02/26/24 03:00 129/83 02/26/24 02:57 86 25 H 97 02/26/24 02:39 93 H 23 96 02/26/24 02:00 95 H 22 96 02/26/24 02:00 131/83 02/26/24 02:00 131/83 02/26/24 01:36 92 H 24 97 02/26/24 01:01 124/71 02/26/24 01:01 124/71 02/26/24 01:00 66 22 02/26/24 00:59 104 H 02/26/24 00:33 89 23 02/26/24 00:06 36.8 C 105 H 23 96 02/26/24 00:00 118/73 02/26/24 00:00 118/73 02/25/24 23:54 101 H 21 96 02/25/24 23:51 103 H 22 97 02/25/24 23:00 114 H 22 92 02/25/24 23:00 122/93 02/25/24 23:00 122/93 02/25/24 23:00 122/93 02/25/24 23:00 122/93 02/25/24 22:36 105 H 21 96 02/25/24 22:03 113 H 23 93 02/25/24 22:01 118/58 L 02/25/24 21:54 Room Air 02/25/24 21:39 98 H 22 95 02/25/24 21:30 81 22 96 02/25/24 21:03 97 H 29 H 94 02/25/24 21:00 141/90 H 09/20/24 20:54 110 H 35 H 94 02/25/24 20:30 96 H 19 92 02/25/24 20:30 122/79 02/25/24 20:30 122/79 02/25/24 20:16 133/84 02/25/24 20:16 133/84 02/25/24 20:15 84 28 H 90 02/25/24 20:03 106 H 27 H 96 02/25/24 20:00 117/81 02/25/24 20:00 117/81 02/25/24 20:00 117/81 02/25/24 20:00 117/81 02/25/24 19:54 102 H 22 96 Critical Care Results & Data Vital Signs (Past 12 Hours) Vital Signs Temp Pulse Resp BP Pulse Ox O2 Del Method 02/26/24 06:36 99 H 23 95 02/26/24 06:03 97 H 28 H 96 02/26/24 06:00 146/92 H 02/26/24 05:51 82 26 H 98 02/26/24 05:33 95 H 21 100 02/26/24 05:06 106 H 22 94 02/26/24 05:00 147/101 H 02/26/24 04:54 93 H 27 H 96 02/26/24 04:33 75 26 H 97 02/26/24 04:21 104 H 25 H 98 02/26/24 03:30 36.8 C 69 28 H 96 02/26/24 03:09 112 H 22 94 02/26/24 03:00 129/83 02/26/24 02:57 86 25 H 97 02/26/24 02:39 93 H 23 96 02/26/24 02:00 95 H 22 96 02/26/24 02:00 131/83 02/26/24 02:00 131/83 02/26/24 01:36 92 H 24 97 02/26/24 01:01 124/71 02/26/24 01:01 124/71 02/26/24 01:00 66 22 02/26/24 00:59 104 H 02/26/24 00:33 89 23 02/26/24 00:06 36.8 C 105 H 23 96 02/26/24 00:00 118/73 02/26/24 00:00 118/73 02/25/24 23:54 101 H 21 96 02/25/24 23:51 103 H 22 97 02/25/24 23:00 114 H 22 92 02/25/24 23:00 122/93 02/25/24 23:00 122/93 02/25/24 23:00 122/93 02/25/24 23:00 122/93 02/25/24 22:36 105 H 21 96 02/25/24 22:03 113 H 23 93 02/25/24 22:01 118/58 L 02/25/24 21:54 Room Air 02/25/24 21:39 98 H 22 95 02/25/24 21:30 81 22 96 02/25/24 21:03 97 H 29 H 94 02/25/24 21:00 141/90 H 02/25/24 20:54 110 H 35 H 94 02/25/24 20:30 96 H 19 92 02/25/24 20:30 122/79 02/25/24 20:30 122/79 02/25/24 20:16 133/84 02/25/24 20:16 133/84 02/25/24 20:15 84 28 H 90 02/25/24 20:03 106 H 27 H 96 02/25/24 20:00 117/81 02/25/24 20:00 117/81 02/25/24 20:00 117/81 02/25/24 20:00 117/81 Lab & Micro Results (Past 24 Hours) RBC 4.20 M/uL (4.70-6.10) L 02/26/24 WBC 31.29 K/ul (4.8-10.8) H* 02/26/24 Hgb 12.6 g/dl (14.0-18.0) L 02/26/24 Hct 37.8 % (42.0-52.0) L 02/26/24 MCV 90.0 fL (80.0-100.0) 02/26/24 MCH 30.0 pg (25.0-34.0) 02/26/24 MCHC 33.3 g/dL (32.0-36.0) 02/26/24 RDW Standard Deviation 40.8 fL (36.4-46.3) 02/26/24 RDW Coefficient of Variation 12.4 % (11.5-14.5) 02/26/24 Plt Count 247 K/uL (130-400) 02/26/24 MPV 10.1 fL (9.4-12.4) 02/26/24 Neutrophils (%) (Auto) 91.1 % 02/26/24 Lymphocytes (%) (Auto) 3.5 % 02/26/24 Monocytes # (Auto) 1.25 K/uL (0.11-0.59) H 02/26/24 Eosinophils # (Auto) 0.00 K/uL (0.00-0.50) 02/26/24 Immature Granulocyte % (Auto) 1.2 % 02/26/24 Neutrophils # (Auto) 28.51 K/uL (1.40-6.50) H 02/26/24 Lymphocytes # (Auto) 1.10 K/uL (1.20-3.40) L 02/26/24 Monocytes # (Auto) 1.25 K/uL (0.11-0.59) H 02/26/24 Eosinophils # (Auto) 0.00 K/uL (0.00-0.50) 02/26/24 Basophils # (Auto) 0.06 K/uL (0.00-0.20) 02/26/24 Immature Granulocyte # (Auto) 0.37 K/uL (0.01-0.20) H 02/25 Na 133 mmol/L (136-145) L 02/26/24 K 4.4 mmol/L (3.5-5.1) 02/26/24 Cl 102 mmol/L (98-107) 02/26/24 CO2 23 mmol/L (21-32) 02/26/24 Anion Gap 8 (3-11) 02/26/24 BUN 22 mg/dl (6-23) 02/26/24 Creatinine 1.11 mg/dl (0.6-1.4) 02/26/24 Estimated GFR ( Amer) 83.2 ml/min 02/26/24 Estimated GFR (Non-Af Amer) 71.8 ml/min 02/26/24 BUN/Creatinine Ratio 19.8 (10-20) 02/26/24 Glu 115 mg/dl (70-99(Fasting)) H 02/26/24 Ca 8.9 mg/dl (8.6-10.3) 02/26/24 Phosphorus Level 4.5 mg/dl (2.5-4.9) 02/26/24 Total Bilirubin 0.5 mg/dl (0.2-1.0) 02/26/24 AST 8 U/L (13-39) L 02/26/24 ALT 9 U/L (7-52) 02/26/24 Alkaline Phosphatase 81 U/L (34-104) 02/26/24 TP 5.8 gm/dl (6.0-8.3) L 02/26/24 Albumin 2.7 gm/dl (3.4-5.0) L 02/26/24 Globulin 3.1 gm/dl (2.5-4.0) 02/26/24 Albumin/Globulin Ratio 0.9 (0.9-2) 02/26/24 Mg 1.7 mg/dl (1.7-2.4) 02/26/24 04:11 Calcium Level 8.9 mg/dl (8.6-10.3) 02/26/24 04:11 Prothromb Time International Ratio 1.3 (0.9-1.1) H 02/26/24 04 :11 Microbiology 02/24/24 14:41 Aerobic Blood Culture - Preliminary Blood Streptococcus pneumoniae Anaerobic Blood Culture - Preliminary Streptococcus pneumoniae 02/24/24 14:41 Aerobic Blood Culture - Preliminary Blood Streptococcus pneumoniae Anaerobic Blood Culture - Preliminary Streptococcus pneumoniae 02/24/24 Unknown Gram Stain - Final Knee,Left Aerobic and Anaerobic Culture - Preliminary Streptococcus pneumoniae 02/24/24 21:45 Gram Stain - Final Sputum, Expectorated Sputum Culture - Preliminary Light normal mac present, final report to follow. I & O Totals 24 Hours 02/25/24 02/26/24 02/27/24 06:59 06:59 06:59 Intake Total 705 / 705 4693.167 / 4693.167 Output Total 810 / 810 2155 / 2155 Balance -105 / -105 2538.167 / 2538.167 Cumulative 02/24/24 11:39 thru 02/26/24 06:55 Intake Total 5398.167 Output Total 2965 Balance 2433.167 RT Ventilator Mngmt (Last Documented) Ventilator Ordered Settings Respiratory Rate 23 02/26/24 06:36 Ventilator - PT Measurements Respiratory Rate 23 Coding Level of Care Code 85971 SUB INP/OBS CARE 3/50MIN Diagnoses SVT (supraventricular tachycardia) I47.10 Bacteremia R78.81 Septic arthritis of knee, left M00.9
[2024-02-26] MEDS: dilTIAZem HCL 30 MG TAB PO SCH (08:20)
[2024-02-26] MEDS ORDERED: NON-FORMULARY MEDICATION (Potassium Gluconate 595 mg (99 mg) tablet) PO SCH (09:00)
--- NOTE | 2024-02-26 09:35 | Hospitalist Progress Note ---
Date of Service February 26, 2024 Assessment & Plan (1) Rhinovirus: (2) Septic arthritis of knee, left: (3) Bacteremia: Plan 59-year-old male with a past medical history significant for obesity and GERD who presented to the [facility] ED on 02/24/2024 due to ongoing/progressive left knee pain and swelling. Septic arthritis of knee, left Gram positive Bacteremia Bcx: Strp. Pneumoniae - Knee aspiration: Strp. Pneumoniae - Leukocytosis 34 today, afebrile - Orthopedics consulted -S/p I&D (02/24) - weightbearing as tolerated - ID consulted - Continue IV Ceftriaxone - Recommend another BCx set to ensure clearance (can order these at 48- 72 hours sarah) Pain control with Tylenol and morphine prn - Steroids d/c - Await OR findings and cultures SVT - Intraoperative and again on PACU: HR in the 190s and hypotense - s/p diltiazem drip and vasopressors - no Cardioversion - ICU consulted - Overnight observation on ICU. Started on Diltiazem 30 mg Q6 - Downgraded to PCU Pneumonia: - leukocytosis, tachycardia Continue IV Abx Incentive spirometry, as needed O2 to keep SpO2 at or above 94% As needed albuterol Rhinovirus: Supportive care per pneumonia plan Diet: Heart healthy diet Dispo: PCU Code Status: Full code DVT Prophylaxis: SCDs, lovenox 24 sq Admission and Anticipated Discharge Date Admission Date: February 24, 2024 Supervising Physician Co-Signing Physician Notes Attending Physician Supervision Note: I independently interviewed and examined the patient and verified the cuellar history and physical, reviewed labs and image studies and agree with findings and care plan noted above. Septic knee arthritis - s/p washout 02/25. Blood and knee aspirate cx - strep pneumo. -WBC higher today - likely from demargination. -ID consulted - continue ceftriaxone. Recheck cx in 72hrs. SVT unstable - developed intraoperatively and recurred in PACU. failed adenosine x2 and was started on cardizem drip and transferred to ICU. No further recurrence. -downgraded to PCU -Transitioned to oral cardizem. PNA - ceftriaxone, sputum culture negative. Rhino/enterovirus - supportive care. d/michelle prednisone. Hyponatremia - stable. follow Glucose intolerance/Weight ds - On phenteramine, topamax and metformin. Holding. Lovenox Subjective Seen in the morning. Refersl feels well. Sporadic coughs, Denied any palpitations of chest pain. Clear this morning for ambulation by ortho Review of Systems Review of Systems: as per HPI Physical Exam Constitutional: WD/WN, vitals as above Respiratory: normal respiratory effort, lungs clear to auscultation Cardiovascular: RRR, no murmur, no edema Rate/Rhythm: + tachycardic Gastrointestinal (Abdomen): normal bowel sounds, soft, nontender, no hepatosplenomegaly Results & Data Results & Data Vital Signs (Past 12 Hours) Vital Signs Temp Pulse Resp BP Pulse Ox O2 Del Method 02/26/24 07:57 Room Air 02/26/24 07:56 36.9 C 02/26/24 06:36 99 H 23 95 02/26/24 06:03 97 H 28 H 96 02/26/24 06:00 146/92 H 02/26/24 05:51 82 26 H 98 02/26/24 05:33 95 H 21 100 02/26/24 05:06 106 H 22 94 02/26/24 05:00 147/101 H 02/26/24 04:54 93 H 27 H 96 02/26/24 04:33 75 26 H 97 02/26/24 04:21 104 H 25 H 98 02/26/24 03:30 36.8 C 69 28 H 96 02/26/24 03:09 112 H 22 94 02/26/24 03:00 129/83 02/26/24 02:57 86 25 H 97 02/26/24 02:39 93 H 23 96 02/26/24 02:00 95 H 22 96 02/26/24 02:00 131/83 02/26/24 02:00 131/83 02/26/24 01:36 92 H 24 97 02/26/24 01:01 124/71 02/26/24 01:01 124/71 02/26/24 01:00 66 22 02/26/24 00:59 104 H 02/26/24 00:33 89 23 02/26/24 00:06 36.8 C 105 H 23 96 02/26/24 00:00 118/73 02/26/24 00:00 118/73 02/25/24 23:54 101 H 21 96 02/25/24 23:51 103 H 22 97 02/25/24 23:00 114 H 22 92 02/25/24 23:00 122/93 02/25/24 23:00 122/93 02/25/24 23:00 122/93 02/25/24 23:00 122/93 02/25/24 22:36 105 H 21 96 02/25/24 22:03 113 H 23 93 02/25/24 22:01 118/58 L 02/25/24 21:54 Room Air 02/25/24 21:39 98 H 22 95 02/25/24 21:30 81 22 96 Resident Activity Tracking Resident Involvement: Resident Care Provided Care Provided: Adult Hospital Medicine
--- NOTE | 2024-02-26 11:27 | Electrocardiogram Report ---
Test Reason : Blood Pressure : */* mmHG Vent. Rate : 194 BPM Atrial Rate : 202 BPM P-R Int : * ms QRS Dur : 88 ms QT Int : 236 ms P-R-T Axes : * -10 158 degrees QTcB Int : 424 ms Supraventricular tachycardia Marked ST abnormality, possible lateral subendocardial injury Abnormal ECG When compared with ECG of 25-Feb-2024 16:10, (unconfirmed) Premature ventricular complexes are no longer Present Vent. rate has increased by [address] now depressed in Lateral leads Nonspecific T wave abnormality has replaced inverted T waves in Inferior leads Confirmed by Chandan Lay ([id number]) on 02/26/2024 11:27:09 AM Referred By: REFERRED SELF Confirmed By: Chandan Lay
--- NOTE | 2024-02-26 11:31 | Electrocardiogram Report ---
Test Reason : Blood Pressure : */* mmHG Vent. Rate : 103 BPM Atrial Rate : 103 BPM P-R Int : 140 ms QRS Dur : 94 ms QT Int : 330 ms P-R-T Axes : 50 -15 35 degrees QTcB Int : 432 ms Sinus tachycardia with Premature supraventricular complexes and with occasional Premature ventricular complexes Otherwise normal ECG When compared with ECG of 25-Feb-2024 16:22, (unconfirmed) Sinus rhythm has replaced Atrial fibrillation ST no longer depressed in Anterolateral leads Nonspecific T wave abnormality, improved in Lateral leads Confirmed by Chandan Lay ([id number]) on 02/26/2024 11:30:47 AM Referred By: REFERRED SELF Confirmed By: Chandan Lay
[2024-02-26] MEDS: ENOXAPARIN INJ 40 MG/0.4 ML SYR SQ SCH (15:44)
[2024-02-27 06:25] LABS: Basophils # (auto) 0.04 K/uL (0.00-0.20); Basophils % (auto) 0.2 %; Eosinophils # (auto) 0.02 K/uL (0.00-0.50); Eosinophils % (auto) 0.1 %; Hematocrit (blood only) 36.2 % (42.0-52.0); Hemoglobin 12.2 g/dl (14.0-18.0); Immature Granulocytes # (auto) 0.44 K/uL (0.01-0.20); Immature Granulocytes % (auto) 2.2 %; Lymphocytes # (auto) 1.91 K/uL (1.20-3.40); Lymphocytes % (auto) 9.6 %; Mean Corpuscular Hemoglobin 29.8 pg (25.0-34.0); Mean Corpuscular Hgb Conc 33.7 g/dL (32.0-36.0); Mean Corpuscular Volume 88.3 fL (80.0-100.0); Monocytes # (auto) 1.36 K/uL (0.11-0.59); Monocytes % (auto) 6.9 %; Neutrophils # (auto) 16.08 K/uL (1.40-6.50); Platelet Count 268 K/uL (130-400); RDW Coefficient of Variation 12.9 % (11.5-14.5); White Blood Count 19.85 K/ul (4.8-10.8)
[2024-02-27 06:34] LABS: INR 1.2 (0.9-1.1); Prothrombin Time 12.7 Seconds (9.0-12.0)
[2024-02-27 06:41] LABS: Albumin Globulin Ratio 0.7 (0.9-2); Albumin Level 2.5 gm/dl (3.4-5.0); BUN Creatinine Ratio 29.4 (10-20); Bilirubin,Total 0.4 mg/dl (0.2-1.0); Calcium 8.7 mg/dl (8.6-10.3); Creatinine Clr Calc Pharmacy 111.9 ml/min; Est GFR (African American) 92.2 ml/min; Est GFR (Non-African American) 79.5 ml/min; Globulin 3.4 gm/dl (2.5-4.0); Magnesium 1.8 mg/dl (1.7-2.4); Phosphorus 3.3 mg/dl (2.5-4.9); Potassium 3.9 mmol/L (3.5-5.1); Total Protein 5.9 gm/dl (6.0-8.3)
--- NOTE | 2024-02-27 09:29 | Hospitalist Progress Note ---
Date of Service February 27, 2024 Assessment & Plan (1) Rhinovirus: (2) Septic arthritis of knee, left: (3) Bacteremia: Plan 59-year-old male with a past medical history significant for obesity and GERD who presented to the [facility] ED on 02/24/2024 due to ongoing/progressive left knee pain and swelling. Septic arthritis of knee, left Gram positive Bacteremia Bcx: Strp. Pneumoniae - Knee aspiration: Strp. Pneumoniae - Leukocytosis trending down ( today) Afebrile - Orthopedics consulted -S/p I&D (02/24) - weightbearing as tolerated - ID consulted - Continue IV Ceftriaxone - Recommend another BCx set to ensure clearance (can order these at 48- 72 hours sarah) - ordered today - Pain on bilateral ankles: Xrays ordered - Echocardiogram ordered today Pain control with Tylenol and morphine prn - Await OR findings and cultures SVT- resolved - Intraoperative and again on PACU: HR in the 190s and hypotense - s/p diltiazem drip and vasopressors - ICU consulted, aprec recommendations: Donwgraded from ICU on 02/25. Started on Diltiazem 30 mg PO Q6 - normal sinus now - Monitor electrolytes, replaced as needed Pneumonia: Continue IV Abx Incentive spirometry, as needed O2 to keep SpO2 at or above 94% As needed albuterol Rhinovirus: Supportive care per pneumonia plan Diet: Heart healthy diet Dispo: PCU Code Status: Full code DVT Prophylaxis: SCDs, lovenox 24 sq Admission and Anticipated Discharge Date Admission Date: February 24, 2024 Supervising Physician Co-Signing Physician Notes Attending Physician Supervision Note: I independently interviewed and examined the patient and verified the cuellar history and physical, reviewed labs and image studies and agree with findings and care plan noted above. Septic knee arthritis - s/p washout 02/25. Blood and knee aspirate cx - strep pneumo. -WBC improving. -ID consulted - continue ceftriaxone. Recheck cx in 72hrs - ordered 02/26. Bilateral ankle pain - severe arthritis in both ankle joints. Ortho could assess further. SVT unstable - developed intraoperatively and recurred in PACU. failed adenosine x2 and was started on cardizem drip and transferred to ICU - transitioned to oral cardizem -Recurrence today 02/26. Baseline HR 90s to 100. 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 -Since BP in 110s, One dose IV metoprolol 2.5 given. -Start metoprolol 50mgs bid and wean cardizem. PNA - ceftriaxone, sputum culture negative. Rhino/enterovirus - supportive care. d/michelle prednisone. Hyponatremia - stable. follow Glucose intolerance/Weight ds - On phenteramine, topamax and metformin. Holding. Lovenox Subjective Seen this morning. Denied any chest pain or palpitations. Refers new bilateral ankle pain when trying to ambulate yesterday. Refers doing well otherwise Review of Systems Review of Systems: as per HPI Physical Exam Constitutional: WD/WN, vitals as above Respiratory: normal respiratory effort, lungs clear to auscultation Cardiovascular: RRR, no murmur, no edema Rate/Rhythm: + tachycardic Gastrointestinal (Abdomen): normal bowel sounds, soft, nontender, no hepatosplenomegaly Results & Data Results & Data Vital Signs (Past 12 Hours) Vital Signs Temp Pulse Pulse Resp BP Pulse Ox O2 Del Method 02/27/24 07:18 36.8 C 93 H 18 141/88 H 96 Room Air 02/27/24 02:32 36.6 C 88 18 134/83 96 Room Air 02/26/24 23:58 92 H 02/26/24 22:41 36.7 C 98 H 164/93 H 97 Room Air Resident Activity Tracking Resident Involvement: Resident Care Provided Care Provided: Adult Hospital Medicine
--- NOTE | 2024-02-27 13:52 | XRay Report ---
XR ankle LT 2V CLINICAL HISTORY: Septic arthritis. COMPARISON: None FINDINGS: There is severe tibiotalar joint space narrowing with extensive osteophytosis. There is ch ronic deformity of the tibiotalar articulation. No bony erosion is identified. There are no acute fra ctures. There are soft tissue swelling. No soft tissue gas is evident. There is an old, healed left f ibular diaphyseal fracture. IMPRESSION: 1. Severe tibiotalar joint osteoarthritis. 2. No acute fractures. No bony erosion to suggest acute osteomyelitis. 3. Old, healed left fibular fracture. ACT 112: Negative or not required by law. Electronically signed by: Stephen Spann M.D. 02/27/2024 1:51 PM
--- NOTE | 2024-02-27 13:54 | XRay Report ---
XR ankle RT 2V CLINICAL HISTORY: Septic arthritis. COMPARISON: None FINDINGS: There is right lower leg and ankle soft tissue swelling. Significant hindfoot deformity is noted. There is probable talonavicular dislocation. Subtalar joint alignment is difficult to assess. Severe degenerative changes within the right hindfoot are present. No acute fractures are identified . No definite bony erosion. IMPRESSION: 1. Severe degenerative changes within the right ankle/hindfoot with age indeterminate talonavicular d islocation/subluxation. Possible malalignment of the subtalar joint, difficult to assess. 2. No acute fractures. No bony erosion to suggest acute osteomyelitis by radiography. 3. Right lower leg and ankle soft tissue swelling. ACT 112: Negative or not required by law. Electronically signed by: Stephen Spann M.D. 02/27/2024 1:52 PM
[2024-02-27] MEDS: METOPROLOL TARTRATE 1 MG/ML VIAL IV STA (15:19)
[2024-02-27] MEDS: dilTIAZem HCL 30 MG TAB PO ONE (16:44)
[2024-02-27] MEDS: METOPROLOL TARTRATE 50 MG TAB PO SCH (20:14)
[2024-02-28 06:22] LABS: Basophils # (auto) 0.05 K/uL (0.00-0.20); Basophils % (auto) 0.3 %; Eosinophils # (auto) 0.04 K/uL (0.00-0.50); Eosinophils % (auto) 0.3 %; Hematocrit (blood only) 35.9 % (42.0-52.0); Hemoglobin 12.4 g/dl (14.0-18.0); Immature Granulocytes # (auto) 0.54 K/uL (0.01-0.20); Immature Granulocytes % (auto) 3.5 %; Lymphocytes # (auto) 2.18 K/uL (1.20-3.40); Lymphocytes % (auto) 14.1 %; Mean Corpuscular Hgb Conc 34.5 g/dL (32.0-36.0); Mean Corpuscular Volume 86.7 fL (80.0-100.0); Mean Platelet Volume 9.7 fL (9.4-12.4); Monocytes # (auto) 1.61 K/uL (0.11-0.59); Monocytes % (auto) 10.4 %; Neutrophils # (auto) 11.07 K/uL (1.40-6.50); Neutrophils % (auto) 71.4 %; Platelet Count 295 K/uL (130-400); RDW Coefficient of Variation 12.3 % (11.5-14.5); RDW Standard Deviation 39.2 fL (36.4-46.3); Red Blood Count 4.14 M/uL (4.70-6.10); White Blood Count 15.49 K/ul (4.8-10.8)
[2024-02-28 06:32] LABS: Calcium 8.7 mg/dl (8.6-10.3); Creatinine Clr Calc Pharmacy 113.5 ml/min; Est GFR (African American) 94.4 ml/min; Est GFR (Non-African American) 81.4 ml/min; Magnesium 1.6 mg/dl (1.7-2.4); Phosphorus 3.3 mg/dl (2.5-4.9); Potassium 3.9 mmol/L (3.5-5.1)
--- NOTE | 2024-02-28 08:52 | Infectious Disease Progress Nt ---
Date of Service February 28, 2024 Assessment & Plan (1) Septic arthritis of knee, left: (2) Bacteremia: (3) Pneumonia: (4) Rhinovirus: Plan 59yo M with h/o PMH obesity BMI 30, COPD, GERD, recent rhinovirus on 02/20 tx with steroid taper, who presented on 02/23 with left knee pain since 02/21. Initially seen at 02/22 for worsening knee pain, XR knee neg for fracture. Noted fevers/chills, chronic right shoulder pain, no cp or sob. Here, he was afebrile, tachycardic. Initial labs with WBC 34, Cr 1.29. CRP 38, ESR 73, PCT 2.15. Lactate wnl. Lyme titer neg. CXR patchy left perihilar airspace opacity, trace left pleural effusion. S/p left knee arthrocentesis in ED, noted pu rulence, synovial WBC 200k. ID consulted 02/24. S/p OR 02/24 and underwent left knee I+D (per op note, very cloudy and purulent fluid removed from joint). Postop c/b SVT to 190s and hypotension, started levophed and dilt gtt in PACU and transferred to ICU, where he improved rather quickly and levophed/dilt gtt stopped and downgraded on 02/25. R ankle XR from 02/26 with severe degenerative changes, talonavicular dislocation/subluxation. L ankle XR with severe tibiotalar OA. ECHO done this morning. Repeat blood cultures are in process, awaiting negative. ECHO was also done today. He is c/o bilateral ankle pain, No erythema on examination, XR was noted changes. # Strep pneumoniae bacteremia # Left knee sleetmute joint septic arthritis 2/2 S pneumoniae # Left perihilar pneumonia SCX with S pneumoniae, no current respiratory sx # Recent rhinovirus infection - f/u BCX from 02/26 - f/u TTE - continue Ceftriaxone 2g IV daily - if BCx neg x 48hrs and TTE neg, plan will be for a total duration of 4 weeks of antibiotics with at least initial 1-2 weeks with IV CTX after which he can be stepped down to PO (e.g., high dose amoxicillin) if doing well clinically ID will continue to follow. If questions or concerns, contact Infectious Disease Call Center . Lisa Pete MD [facility], Division of Infectious Diseases IDConnect: [phone] Admission and Anticipated Discharge Date Admission Date: February 24, 2024 Subjective Subsequent visit was provided via telemedicine using two-way real-time interactive telecommunication between the patient and the telemedicine provider. For the duration of the visit, the provider was performing the assessment from a different facility than the patient. This includesuse of bluetooth stethoscope forauscultationperformed by the telepresenter that the telemedicine provider can hear if described in the physical exam. Behavioral Analyst contact information: Please call ID Connect Call Center . (Phone Number For Physician Use Only) After establishing a telemedicine visit, patient was: Patient was verified with two unique identifiers, Patient/authorized rep acknowledged consent and understanding and Gave permission to continue telehealth session Time Spent with Patient: Subsequent => 35 min Patient c/o pain and swelling in bilateral ankles that's worse when he ambulates. He also has pain in his left knee when he is moved. He has not been getting out of bed. He does not have SOB or cough. No abdominal pain, diarrhea. No new rashes. No back pain. Physical Exam Physical Exam: General: Awake, alert, no acute distress HEENT: NC/AT, EOMI, mmm Neck: supple Lungs: respirations non-labored Heart: nl peripheral perfusion Abdomen: soft, nontender Ext: bl LE edema with chronic skin changes in lower legs, bl ankle also with swelling. No erythema, noted tenderness of bl lower legs. Left knee with postop dressing, no erythema Results & Data Vital Signs (Past 12 Hours) Vital Signs Temp Pulse Pulse Resp BP BP Pulse Ox 02/28/24 03:35 37.5 C 85 18 148/82 H 95 02/28/24 03:33 37.5 C 85 18 148/87 H 95 02/27/24 23:53 100 H 02/27/24 22:00 37.1 C 93 H 20 127/75 94 O2 Del Method 02/28/24 03:35 Room Air 02/28/24 03:33 Room Air 02/27/24 23:53 02/27/24 22:00 Room Air Laboratory Results Labs reviewed. Diagnostic Findings Imaging reviewed. (3) Pneumonia Laterality: left Lung location: lower lobe of lung
[2024-02-28] MEDS: MAGNESIUM SULFATE / D5W 1 GM/100 ML BAG IV SCH (09:09)
--- NOTE | 2024-02-28 09:10 | Hospitalist Progress Note ---
Date of Service February 28, 2024 Assessment & Plan (1) Septic arthritis of knee, left: Plan: Gram positive bacteremia - Patient presented to ED with symptoms with severe pain and inability to bear weight - Bcx 02/23: Strep Pneumoniae - Knee aspiration: Step Pneumoniae - Bcx: 02/26: no cultures seen - Leukocytosis trending down (15 today), afebrile - Orthopedics consulted - S/p I&D (02/24) - weightbearing as tolerated - ID consulted - Total duration 4 weeks if BC neg x24 and normal TTE: Continue IV Ceftriaxone 1-2 then stepped down to high dose Amoxicillin - Pain on bilateral ankles - XR showed severe osteoarthritis - Pain control with Tylenol and morphine prn - Await OR findings - Workup for possible endocarditis - Echocardiogram ordered yesterday (2) SVT (supraventricular tachycardia): Plan: SVT - resolved - Patient presented with SVT intraoperative and again on PACU: HR in the 190s and hypotense - s/p diltiazem drip and vasopressors - No cardioversion - ICU consulted, as per rec recommendations: Downgraded from ICU on 02/25. - Stopped diltiazem today, will monitor - Continue metoprolol - Normal sinus now - Monitor electrolytes, replaced as needed (3) Rhinovirus: Plan: Supportive care per pneumonia plan Plan Diet: Heart healthy diet Dispo: PCU Code Status: Full code DVT Prophylaxis: SCDs, lovenox 24 sq Admission and Anticipated Discharge Date Admission Date: February 24, 2024 Supervising Physician Co-Signing Physician Notes I personally examined the patient and verified all cuellar points of history and exam, discussed case, and agree with decision making with Dr Bony Church and Rosy Keys MS2 Feeling reasonably okayknee and ankle pain ongoing. No other new complaints. Discussed with patient and updated on plans to the best my ability. Vitals noted, in general he is awake and alert pleasant no distress. HEENT normocephalic atraumatic mucous membranes moist. Left knee dressed and wrapped, distal edema slightly worse on the left than the right but fairly comparable with chronic venous stasis changes. Septic knee arthritis - s/p washout 02/25. Blood and knee aspirate cx - strep pneumo. Concern on bacteremia leading to septic arthritisTTE and repeat cultures pending. Appreciate ID input. - Continue Bilateral ankle pain - severe arthritis in both ankle joints. Ortho could assess further. does not appear to examine consistent with a septic SVT unstable - developed intraoperatively and recurred in PACU. failed adenosine x2 and was started on cardizem drip and transferred to ICU - transitioned to oral cardizemStreamline oral regimen - recurred 02/26. Now sinus. Suspect some degree of baseline electrical disease superimposed with current physiologic stressors. PNA - ceftriaxone, sputum culture negative. concern on septic emboliTTE and repeat cultures pending Rhino/enterovirus - supportive care. d/michelle prednisone. Hyponatremia - stable. follow Glucose intolerance/Weight ds - On phenteramine, topamax and metformin. Holding. Lovenox Subjective Seen in the morning. No overnight changes. Denies any shortness of breath, chest pain, palpitations, or abdominal pain. Mentions that pain in ankles is slightly better than yesterday and still feels pain in left knee. Has not been weight bearing on left leg yet or tried to ambulate. Review of Systems Review of Systems: As per HPI Physical Exam Constitutional: WD/WN, no acute distress, normal mood and affect, alert and oriented Respiratory: normal respiratory effort, lungs clear to auscultation bilaterally, no crackles, rales, or rhonchi Cardiovascular: Rate/Rhythm: + tachycardic Heart Sounds: normal S1 and normal S2 no murmurs or gallops, no edema Gastrointestinal (Abdomen): normal bowel sounds, soft, nontender, no hepatosplenomegaly Inspection/Auscultation: abdomen normal to inspection Musculoskeletal: Left leg swelling and tenderness, ankle swelling, knee is in post-op dressing Psychiatric: euthymic affect Results & Data Results & Data Vital Signs (Past 12 Hours) Vital Signs Temp Pulse Pulse Resp BP BP Pulse Ox 02/28/24 03:35 37.5 C 85 18 148/82 H 95 02/28/24 03:33 37.5 C 85 18 148/87 H 95 02/27/24 23:53 100 H 02/27/24 22:00 37.1 C 93 H 20 127/75 94 02/27/24 20:32 37.7 C H 98 H 18 125/72 98 O2 Del Method 02/28/24 03:35 Room Air 02/28/24 03:33 Room Air 02/27/24 23:53 02/27/24 22:00 Room Air 02/27/24 20:32 Room Air Resident Activity Tracking Resident Involvement: Resident Care Provided Care Provided: Adult Hospital Medicine
--- NOTE | 2024-02-28 14:08 | Orthopedic Progress Note ---
Date of Service February 28, 2024 Assessment & Plan (1) Septic arthritis of knee, left: He is doing with a strep pneumonia that she did to his left knee. He can be weightbearing as tolerated on the left knee. The nursing staff can remove the dressing and leave the sutures open to air. He is orthopedically stable for discharge and can follow-up with orthopedics in 2 weeks. Full orthopedic discharge instructions were placed in the discharge summary. Veronica Ednancy was seen and examined at bedside this morning. Overall he seems to be doing okay. He is on antibiotics for strep pneumonia. He has not been able to ambulate on his knees due to swelling of his ankles. He has no new complaints with regards to his knee.. Review of Systems All systems reviewed & are unremarkable except as noted in HPI & below. Physical Exam Physical examination left knee, the dressing was pulled down some. The incisions look okay. There is no drainage. He does have a lot of swelling around his ankles.. Results & Data Results & Data Laboratory Results . Diagnostic Findings . PG Care Time/CCT Total # of Minutes Spent Total Time Spent with Patient: Total time spent is greater than 50% in coordination of care (as documented) at patient's floor/unit and/or counseling patient: Coding Level of Care Code 83766 Post Operative Follow-Up Diagnoses Septic arthritis of knee, left M00.9
--- NOTE | 2024-02-28 18:18 | Billing Data ---
Date of Service February 28, 2024 Coding Level of Care Code 31344 SUB INP/OBS CARE
--- NOTE | 2024-02-28 18:31 | XCELERA ---
[id number] \\[id number]
[2024-02-29 06:37] LABS: BUN Creatinine Ratio 29.8 (10-20); Calcium 8.6 mg/dl (8.6-10.3); Creatinine Clr Calc Pharmacy 120.9 ml/min; Est GFR (African American) 101.7 ml/min; Est GFR (Non-African American) 87.8 ml/min; Magnesium 1.8 mg/dl (1.7-2.4); Potassium 3.8 mmol/L (3.5-5.1)
[2024-02-29 06:41] LABS: Basophils # (auto) 0.09 K/uL (0.00-0.20); Basophils % (auto) 0.4 %; Eosinophils # (auto) 0.11 K/uL (0.00-0.50); Eosinophils % (auto) 0.5 %; Hematocrit (blood only) 39.1 % (42.0-52.0); Hemoglobin 13.4 g/dl (14.0-18.0); Immature Granulocytes # (auto) 1.03 K/uL (0.01-0.20); Lymphocytes # (auto) 2.45 K/uL (1.20-3.40); Lymphocytes % (auto) 11.8 %; Mean Corpuscular Hgb Conc 34.3 g/dL (32.0-36.0); Mean Corpuscular Volume 87.7 fL (80.0-100.0); Mean Platelet Volume 9.7 fL (9.4-12.4); Monocytes # (auto) 2.11 K/uL (0.11-0.59); Monocytes % (auto) 10.2 %; Neutrophils # (auto) 14.99 K/uL (1.40-6.50); Neutrophils % (auto) 72.1 %; Platelet Count 343 K/uL (130-400); RDW Coefficient of Variation 12.9 % (11.5-14.5); RDW Standard Deviation 41.1 fL (36.4-46.3); Red Blood Count 4.46 M/uL (4.70-6.10); White Blood Count 20.78 K/ul (4.8-10.8)
--- NOTE | 2024-02-29 11:06 | Infectious Disease Progress Nt ---
Date of Service February 29, 2024 Assessment & Plan (1) Septic arthritis of knee, left: (2) Bacteremia: (3) Rhinovirus: Plan 59yo M with h/o PMH obesity BMI 30, COPD, GERD, recent rhinovirus on 02/20 tx with steroid taper, who presented on 02/23 with left knee pain since 02/21. Initially seen at 02/22 for worsening knee pain, XR knee neg for fracture. Noted fevers/chills, chronic right shoulder pain, no cp or sob. Here, he was afebrile, tachycardic. Initial labs with WBC 34, Cr 1.29. CRP 38, ESR 73, PCT 2.15. Lactate wnl. Lyme titer neg. CXR patchy left perihilar airspace opacity, trace left pleural effusion. S/p left knee arthrocentesis in ED, noted purulence, synovial WBC 200k. ID consulted 02/24. S/p OR 02/24 and underwent left knee I+D (per op note, very cloudy and purulent fluid removed from joint). Postop c/b SVT to 190s and hypotension, started levophed and dilt gtt in PACU and transferred to ICU, where he improved rather quickly and levophed/dilt gtt stopped and downgraded on 02/25. R ankle XR from 02/26 with severe degenerative changes, talonavicular dislocation/subluxation. L ankle XR with severe tibiotalar OA. TTE negative for vegetation or valvular abnormality. Repeat BCX ngtd x 48h. WBC noted to be 20 today. Clinically doing well, aside from feeling an upset stomach. Unclear why is WBC is up to 20 today, no localizing signs on examination. Would continue current abx and monitor WBC. Abx: CTX 2g daily 03/05-present Vanc 02/23-02/24 Zosyn 02/23 02/23 BCX: S pneumoniae in 4/4 bottles (caballero-S) 02/23 SCX: S pneumoniae (caballero-S) 02/23 L knee aspiration cx: S pneumoniae (caballero-S) 02/24 OR cx (L knee): S pneumoniae 02/26 BCx: ngtd x 48h # Strep pneumoniae bacteremia -ngtd 02/26 # Left knee red cliff joint septic arthritis 2/2 S pneumoniae s/p I+D 02/24 # Left perihilar pneumonia SCX with S pneumoniae, no current respiratory sx # Recent rhinovirus infection - continue Ceftriaxone 2g IV daily - monitor WBC Discharge plan (assuming no new issues and downtrending WBC): - CTX 2g IV daily - duration of 4 weeks of antibiotics (start 02/26, end through 03/25) with at least initial 1-2 weeks with IV CTX after which he can be stepped down to PO (e.g., amoxicillin 1g PO tid or levofloxacin) if doing well clinically, otherwise complete all with IV - monitor weekly CBC w diff, CMP, ESR, CRP while on IV antibiotics - he can follow up with PCP Lisa Pete MD [facility], Division of Infectious Diseases IDConnect: [phone] Admission and Anticipated Discharge Date Admission Date: February 24, 2024 Subjective Subsequent visit was provided via telemedicine using two-way real-time interactive telecommunication between the patient and the telemedicine provider. For the duration of the visit, the provider was performing the assessment from a different facility than the patient. This includesuse of bluetooth stethoscope forauscultationperformed by the telepresenter that the telemedicine provider can hear if described in the physical exam. Certified Public Accountant contact information: Please call ID Connect Call Center . (Phone Number For Physician Use Only) After establishing a telemedicine visit, patient was: Patient was verified with two unique identifiers, Patient/authorized rep acknowledged consent and understanding and Gave permission to continue telehealth session Time Spent with Patient: Subsequent => 35 min Patient says pain in his knee is getting better as is his ankles, though they are still sore. He has not gotten out of bed. He notes an upset stomach now, no abdominal pain, vomiting or diarrhea. No back pain, SOB, cough, chest pain. Physical Exam Physical Exam: General: Awake, alert, no acute distress HEENT: NC/AT, EOMI, mmm Neck: supple Lungs: respirations non-labored Heart: nl peripheral perfusion Abdomen: soft, nontender Ext: bl LE edema with chronic skin changes in lower legs, bl ankle also with swelling, improving. No erythema. Some mild tenderness of right ankle, left ankle nontender. Left knee without erythema or tenderness, surgical site c/d/i Results & Data Vital Signs (Past 12 Hours) Vital Signs Temp Pulse Pulse Resp BP Pulse Ox O2 Del Method 02/29/24 08:00 82 02/29/24 07:08 37.0 C 82 17 130/80 98 Room Air 02/29/24 02:56 36.8 C 83 18 128/80 98 Room Air 02/28/24 23:35 37.0 C 92 H 18 132/87 95 Room Air Laboratory Results Labs reviewed.
--- NOTE | 2024-02-29 15:08 | Hospitalist Progress Note ---
Date of Service February 29, 2024 Assessment & Plan (1) Septic arthritis of knee, left: Plan: Gram positive bacteremia - Patient presented to ED with symptoms with severe pain and inability to bear weight - Bcx 02/23: Strep Pneumoniae - Knee aspiration: Step Pneumoniae - Bcx: 02/26: no cultures seen - Leukocytosis trending upward today (20 today), afebrile - Orthopedics consulted - S/p I&D (02/24) - weightbearing as tolerated - ID consulted - Total duration 4 weeks if BC neg x24 and normal TTE: Continue IV Ceftriaxone 1-2 then stepped down to high dose Amoxicillin - Pain on bilateral ankles - XR showed severe osteoarthritis - Pain control with Tylenol and morphine prn - Await OR findings - Workup for possible endocarditis - ECG shows no vegetation. EF 55-60% (2) SVT (supraventricular tachycardia): Plan: - Patient presented with SVT intraoperative and again on PACU: HR in the 190s and hypotense - s/p diltiazem drip and vasopressors - No cardioversion - ICU consulted, as per rec recommendation. Downgraded from ICU on 02/25. - Stopped diltiazem and continuing metoprolol - Currently normal sinus - Monitor electrolytes, replaced as needed (3) Rhinovirus: Plan: Supportive care per pneumonia plan Plan Diet: Heart healthy diet Dispo: PCU Code Status: Full code DVT Prophylaxis: SCDs, lovenox 24 sq Admission and Anticipated Discharge Date Admission Date: February 24, 2024 Supervising Physician Co-Signing Physician Notes I personally examined the patient and verified all cuellar points of history and exam, discussed case, and agree with decision making with Dr Bony Church and Rosy Keys MS2 no new problems or complaints. updated on TTE and f/u blood cultures. Vitals noted, in general he is awake and alert pleasant no distress. HEENT normocephalic atraumatic mucous membranes moist. Left knee dressed and wrapped, distal edema slightly worse on the left than the right but fairly comparable with chronic venous stasis changes. Septic knee arthritis - s/p washout 02/25. Blood and knee aspirate cx - strep pneumo. Concern on bacteremia leading to septic arthritisTTE reassuring, and repeat cultures negative making endocarditis unlikely. Appreciate ID input. - Continue rocephin. Bilateral ankle pain - severe arthritis in both ankle joints. Ortho could assess further. does not appear to examine consistent with a septic SVT unstable - developed intraoperatively and recurred in PACU. failed adenosine x2 and was started on cardizem drip and transferred to ICU - transitioned to oral cardizemStreamline oral regimen - recurred 02/26. Now sinus. Suspect some degree of baseline electrical disease superimposed with current physiologic stressors. PNA - ceftriaxone, basically asymptomatic Rhino/enterovirus - supportive care. d/michelle prednisone. Hyponatremia - stable. follow Glucose intolerance/Weight ds - On phenteramine, topamax and metformin. Holding. Lovenox Subjective Edward says pain is better than yesterday. He has not tried to ambulate or weight-bear yet. He has not seen PT yet. He notes no SOB, chest pain, or abdominal pain. Review of Systems Review of Systems: As per HPI Physical Exam Constitutional: WD/WN, vitals as above Respiratory: normal respiratory effort, lungs clear to auscultation normal respiratory effort, lungs clear to auscultation bilaterally, no crackles, rales, or rhonchi Cardiovascular: RRR, no murmur, no edema Rate/Rhythm: regular rate and regular rhythm Heart Sounds: normal S1 and normal S2 Gastrointestinal (Abdomen): normal bowel sounds, soft, nontender, no hepatosplenomegaly Results & Data Results & Data Vital Signs (Past 12 Hours) Vital Signs Temp Pulse Pulse Resp BP BP Pulse Ox 02/29/24 11:38 37.0 C 75 18 120/69 99 02/29/24 08:00 82 02/29/24 07:08 37.0 C 82 17 130/80 98 O2 Del Method 02/29/24 11:38 Room Air 02/29/24 08:00 02/29/24 07:08 Room Air Resident Activity Tracking Resident Involvement: Resident Care Provided Care Provided: Adult Hospital Medicine
--- NOTE | 2024-02-29 17:19 | Billing Data ---
Date of Service February 29, 2024 Coding Level of Care Code 12141 SUB INP/OBS CARE
[2024-03-01] MEDS: ONDANSETRON INJ 2 MG/ML 2 ML VIAL IV STA (03:48)
[2024-03-01 06:22] LABS: Basophils % (auto) 0.5 %; Eosinophils # (auto) 0.19 K/uL (0.00-0.50); Eosinophils % (auto) 0.9 %; Hematocrit (blood only) 37.4 % (42.0-52.0); Hemoglobin 12.8 g/dl (14.0-18.0); Immature Granulocytes # (auto) 0.95 K/uL (0.01-0.20); Immature Granulocytes % (auto) 4.7 %; Lymphocytes # (auto) 2.01 K/uL (1.20-3.40); Mean Corpuscular Hemoglobin 29.7 pg (25.0-34.0); Mean Corpuscular Hgb Conc 34.2 g/dL (32.0-36.0); Mean Corpuscular Volume 86.8 fL (80.0-100.0); Mean Platelet Volume 9.9 fL (9.4-12.4); Monocytes # (auto) 1.73 K/uL (0.11-0.59); Monocytes % (auto) 8.6 %; Neutrophils # (auto) 15.19 K/uL (1.40-6.50); Neutrophils % (auto) 75.3 %; Platelet Count 419 K/uL (130-400); RDW Coefficient of Variation 12.7 % (11.5-14.5); RDW Standard Deviation 40.5 fL (36.4-46.3); Red Blood Count 4.31 M/uL (4.70-6.10); White Blood Count 20.17 K/ul (4.8-10.8)
[2024-03-01 06:37] LABS: BUN Creatinine Ratio 30.5 (10-20); Calcium 8.8 mg/dl (8.6-10.3); Creatinine Clr Calc Pharmacy 138.1 ml/min; Est GFR (African American) 111.4 ml/min; Est GFR (Non-African American) 96.1 ml/min; Magnesium 1.8 mg/dl (1.7-2.4); Potassium 4.1 mmol/L (3.5-5.1)
[2024-03-01] MEDS: CALCIUM CARBONATE 500 MG CHEWABLE TAB PO PRN (09:06)
[2024-03-01] MEDS: FAMOTIDINE 10 MG TABLET PO SCH (10:24)
--- NOTE | 2024-03-01 12:49 | Hospitalist Progress Note ---
Date of Service March 01, 2024 Assessment & Plan (1) Septic arthritis of knee, left: Plan: Gram positive bacteremia - Patient presented to ED with symptoms with severe pain and inability to bear weight - Bcx 02/23: Strep Pneumoniae - Knee aspiration: Step Pneumoniae - Bcx: 02/26: no cultures seen - Leukocytosis trending upward today (20 today), afebrile - Orthopedics consulted - S/p I&D (02/24) - weightbearing as tolerated - ID consulted - Total duration 4 weeks if BC neg x24 and normal TTE: Continue IV Ceftriaxone - Pain on bilateral ankles - XR showed severe osteoarthritis - Workup for possible endocarditis - negative - (2) SVT (supraventricular tachycardia): Plan: - Patient presented with SVT intraoperative and again on PACU: HR in the 190s and hypotense - s/p diltiazem drip and vasopressors - No cardioversion - ICU consulted, as per rec recommendation. Downgraded from ICU on 02/25. - Stopped diltiazem and continuing metoprolol - Currently normal sinus - Monitor electrolytes, replaced as needed (3) Rhinovirus: Plan: Supportive care per pneumonia plan Plan Diet: Heart healthy diet Dispo: PCU Code Status: Full code DVT Prophylaxis: SCDs, lovenox 24 sq Admission and Anticipated Discharge Date Admission Date: February 24, 2024 Supervising Physician Co-Signing Physician Notes I personally examined the patient and verified all cuellar points of history and exam, discussed case, and agree with decision making with Dr Bony Church Feeling okay now. Had some belly pain earlier but has since resolved. No ongoing complaints. Vitals noted, in general he is awake and alert pleasant no distress. HEENT normocephalic atraumatic mucous membranes moist. Abdomen soft nondistended very mild lower abdominal tenderness no guarding rebound or rigidity Septic knee arthritis - s/p washout 02/25. Blood and knee aspirate cx - strep pneumo. Concern on bacteremia leading to septic arthritisTTE reassuring, and repeat cultures negative making endocarditis unlikely. Appreciate ID input. - Continue rocephin. anticipate 4 weeks abdominal painnonspecific and resolving, overall reassuring examcontinue to follow, does not appear to have any ominous findings consistent with infection/other serious pathology. Bilateral ankle pain - severe arthritis in both ankle joints. Ortho could assess further. does not appear to examine consistent with a septic picture SVT unstable - developed intraoperatively and recurred in PACU. failed adenosine x2 and was started on cardizem drip and transferred to ICU - transitioned to oral cardizemStreamline oral regimen - recurred 02/26. Now sinus. Suspect some degree of baseline electrical disease superimposed with current physiologic stressors. PNA - ceftriaxone, basically asymptomatic Rhino/enterovirus - supportive care. d/michelle prednisone. Hyponatremia - stable. follow Glucose intolerance/Weight ds - On phenteramine, topamax and metformin. Holding. Lovenox For DVT prophylaxis Subjective Seen this morning. Refers doing good. Knee pain improved. Midline placed today. Continue PT. Anticipate d/c tomorrow to rehab Review of Systems Review of Systems: as per hpi Physical Exam Constitutional: WD/WN, vitals as above Respiratory: normal respiratory effort, lungs clear to auscultation Cardiovascular: RRR, no murmur, no edema Rate/Rhythm: regular rate, regular rhythm and + tachycardic Heart Sounds: normal S1 and normal S2 Gastrointestinal (Abdomen): normal bowel sounds, soft, nontender, no hepatosplenomegaly Results & Data Results & Data Vital Signs (Past 12 Hours) Vital Signs Temp Pulse Pulse Resp BP Pulse Ox O2 Del Method 03/01/24 10:33 36.4 C L 90 18 131/84 99 Room Air 03/01/24 07:46 85 03/01/24 07:06 36.4 C L 90 19 125/81 96 Room Air 03/01/24 03:26 37.0 C 91 H 18 124/80 96 Room Air Resident Activity Tracking Resident Involvement: Resident Care Provided Care Provided: Adult Hospital Medicine
--- NOTE | 2024-03-01 12:58 | Infectious Disease Progress Nt ---
Date of Service March 01, 2024 Assessment & Plan (1) Septic arthritis of knee, left: (2) Bacteremia: (3) Rhinovirus: (4) Leukocytosis: Plan 59yo M with h/o PMH obesity BMI 30, COPD, GERD, recent rhinovirus on 02/20 tx with steroid taper, who presented on 02/23 with left knee pain since 02/21. Initially seen at 02/22 for worsening knee pain, XR knee neg for fracture. Noted fevers/chills, chronic right shoulder pain, no cp or sob. Here, he was afebrile, tachycardic. Initial labs with WBC 34, Cr 1.29. CRP 38, ESR 73, PCT 2.15. Lactate wnl. Lyme titer neg. CXR patchy left perihilar airspace opacity, trace left pleural effusion. S/p left knee arthrocentesis in ED, noted purulence, synovial WBC 200k. ID consulted 02/24. S/p OR 02/24 and underwent left knee I+D (per op note, very cloudy and purulent fluid removed from joint). Postop c/b SVT to 190s and hypotension, started levophed and dilt gtt in PACU and transferred to ICU, where he improved rather quickly and levophed/dilt gtt stopped and downgraded on 02/25. R ankle XR from 02/26 with severe degenerative changes, talonavicular dislocation/subluxation. L ankle XR with severe tibiotalar OA. TTE negative for vegetation or valvular abnormality. Repeat BCX ngtd x 48h. WBC noted to be 20 since 02/28. WBC remains at 20. Possibly related to his reported abdominal discomfort which is mostly lower abdomen. No diarrhea or urinary symptoms. His knee appears to be doing well, and no erythema of his ankles. May consider UA/UCx if he develops any urinary symptoms or if he has ongoing abdominal pain with leukocytosis, abdominal imaging should also be considered. # Leukocytosis # Strep pneumoniae bacteremia ngtd 02/26 # Left knee [place] joint septic arthritis 2/2 S pneumoniae s/p I+D 02/24 # Left perihilar pneumonia SCX with S pneumoniae, no current respiratory sx # Recent rhinovirus infection - may consider UA/UCx if urinary symptoms/fever develop as well as BCx - if ongoing leukocytosis with abdominal complaints, would consider obtaining abdominal imaging (e.g., CT w contrast) - continue Ceftriaxone 2g IV daily Discharge plan (assuming no new issues and downtrending WBC): - CTX 2g IV daily - duration of 4 weeks of antibiotics (start 02/26, end through 03/25) with at least initial 1-2 weeks with IV CTX after which he can be stepped down to PO (e.g., amoxicillin 1g PO tid or levofloxacin) if doing well clinically, otherwise complete all with IV - monitor weekly CBC w diff, CMP, ESR, CRP while on IV antibiotics - he can follow up with PCP ID will continue to follow. If questions or concerns, contact Infectious Disease Call Center . Lisa Pete MD [facility], Division of Infectious Diseases [facility]: [phone] Admission and Anticipated Discharge Date Admission Date: February 24, 2024 Subjective Subsequent visit was provided via telemedicine using two-way real-time interactive telecommunication between the patient and the telemedicine provider. For the duration of the visit, the provider was performing the assessment from a different facility than the patient. This includesuse of bluetooth stethoscope forauscultationperformed by the telepresenter that the telemedicine provider can hear if described in the physical exam. Educational Resource Coordinator contact information: Please call [facility] Call Center . (Phone Number For Physician Use Only) After establishing a telemedicine visit, patient was: Patient was verified with two unique identifiers, Patient/authorized rep acknowledged consent and understanding and Gave permission to continue telehealth session Time Spent with Patient: Subsequent => 35 min Patient says he still has abdominal discomfort, mostly in lower abdomen. No diarrhea, says he had 2 formed stools yesterday. No dysuria, urinary frequency, or hematuria. Soreness in ankles reported, knee is doing better. Physical Exam Physical Exam: General: Awake, alert, no acute distress HEENT: NC/AT, EOMI, mmm Neck: supple Lungs: respirations non-labored Heart: nl peripheral perfusion Abdomen: soft, LLQ ttp Ext: bl LE edema with chronic skin changes in lower legs, bl ankle also with swelling. No erythema. Left knee without erythema or tenderness, surgical site c/d/i Results & Data Vital Signs (Past 12 Hours) Vital Signs Temp Pulse Pulse Resp BP Pulse Ox O2 Del Method 03/01/24 10:33 36.4 C L 90 18 131/84 99 Room Air 03/01/24 07:46 85 03/01/24 07:06 36.4 C L 90 19 125/81 96 Room Air 03/01/24 03:26 37.0 C 91 H 18 124/80 96 Room Air
--- NOTE | 2024-03-01 17:00 | Billing Data ---
Date of Service March 01, 2024 Coding Level of Care Code 39959 SUB INP/OBS CARE
[2024-03-02 07:11] LABS: Basophils # (auto) 0.08 K/uL (0.00-0.20); Basophils % (auto) 0.5 %; Eosinophils # (auto) 0.28 K/uL (0.00-0.50); Eosinophils % (auto) 1.8 %; Hematocrit (blood only) 36.6 % (42.0-52.0); Hemoglobin 12.6 g/dl (14.0-18.0); Immature Granulocytes # (auto) 0.66 K/uL (0.01-0.20); Immature Granulocytes % (auto) 4.4 %; Lymphocytes # (auto) 1.86 K/uL (1.20-3.40); Lymphocytes % (auto) 12.3 %; Mean Corpuscular Hemoglobin 30.1 pg (25.0-34.0); Mean Corpuscular Hgb Conc 34.4 g/dL (32.0-36.0); Mean Corpuscular Volume 87.6 fL (80.0-100.0); Mean Platelet Volume 9.6 fL (9.4-12.4); Monocytes # (auto) 1.36 K/uL (0.11-0.59); Neutrophils # (auto) 10.92 K/uL (1.40-6.50); Platelet Count 480 K/uL (130-400); RDW Coefficient of Variation 12.8 % (11.5-14.5); RDW Standard Deviation 40.9 fL (36.4-46.3); Red Blood Count 4.18 M/uL (4.70-6.10); White Blood Count 15.16 K/ul (4.8-10.8)
[2024-03-02 07:45] VITALS: RESP 19
[2024-03-02 09:21] LABS: Calcium 9.1 mg/dl (8.6-10.3); Potassium 3.9 mmol/L (3.5-5.1)
[2024-03-02 09:27] LABS: BUN Creatinine Ratio 30.2 (10-20); Est GFR (African American) 109.2 ml/min; Est GFR (Non-African American) 94.3 ml/min
--- NOTE | 2024-03-02 10:04 | Discharge Summary ---
Date of Service March 02, 2024 Admission HPI Per Admitting Provider Luis Alfredo is a 59-year-old male with a past medical history significant for obesity and GERD who presented to the [facility] ED on 02/24/2024 due to ongoing/progressive left knee pain and swelling. Patient was initially diagnosed with rhinovirus on 02/21/2024 during a PCP visit and was prescribed a prednisone taper. He then presented to the [facility] clinic on 02/23/2024 due to left knee pain. X-ray of the left knee obtained on 02/23/2024 was read as negative for acute fracture or dislocation. Moderate to large knee effusion with intra-articular loose bodies. Severe tricompa rtmental osteoarthritis. On arrival to the ED he was noted to be tachycardic with heart rate in the low 100s but otherwise stable. Labs were significant for a leukocytosis of 34 with neutrophil predominance of 32, ESR of 73, lactate within normal limits, uric acid level of 7.4, CRP of 38, Pro-Avelino of 2.15, with Lyme disease screen negative. The ED to perform joint aspiration of the left knee and noted significantly purulent aspirate which has been sent for analysis. Stat blood cultures were ordered by the admitting team prior to administration of first dose of antibiotics. Chest x-ray was read as patchy left perihilar airspace opacity which like represents a pneumonia. 1-2-month chest x-ray follow-up recommended to ensure resolution. Trace left pleural effusion. The ED did speak with orthopedics who confirmed that they will take him to the OR tomorrow morning for washout. Patient was sitting in bed in no acute distress at time of exam with his bedside, history is obtained from both. Confirms that he initially presented to his PCP on 02/21/2024 due to routine follow-up appointment and underwent bio fire testing as he had cold symptoms and tested positive for rhinovirus. Confirms that he had been taking the prednisone taper since 02/21/2024 as scheduled with his last dose of steroids this morning. States that his left knee pain/swelling quickly started on 02/22/2024. Has been having fever/chills intermittently since 02/21/2024 but denies recent chest pain, shortness of breath, abdominal pain, nausea/vomiting, diarrhea, dysuria/hematuria, melena, or recent trauma. Confirms that his right shoulder pain is chronic due to previous right shoulder injury and is not associated with his recent left knee pain or swelling. Confirms he is a full code and would want his to decisions for him if he cannot make them himself. Please refer to Dr. Solomon's attestation for any changes to the plan Principal Diagnosis Septic Arthritis Bacteremia Discharge Exam Constitutional WD/WN, vitals as above Respiratory normal respiratory effort, lungs clear to auscultation Cardiovascular RRR, no murmur, no edema Heart Sounds: normal S1 and normal S2 Gastrointestinal (Abdomen) normal bowel sounds, soft, nontender, no hepatosplenomegaly Discharge Data Allergies Allergy/AdvReac Type Severity Reaction Status Date / Time No Known Allergies Allergy Verified 02/24/24 14:50 Consultations 02/24/24 14:14 ED Decision to Admit Stat 02/24/24 14:45 Consult Orthopedic Surgery Routine 02/25/24 08:44 Consult Infectious Diseases Routine 02/25/24 18:13 Consult Office Manager Receptionist Routine Procedures Performed Operation Date: 02/25/24 08:20 Actual Procedures p Left Knee Arthroscopic Incision and Drainage(Left) - Nicola Pollard DO Hospital Course (1) Septic arthritis of knee, left: (2) SVT (supraventricular tachycardia): (3) Rhinovirus: Plan 59-year-old male with a past medical history significant for obesity and GERD who presented to the [facility] ED on 02/24/2024 due to ongoing/progressive left knee pain and swelling. Found with bacteremia and septic arthritis Septic arthritis of knee, left: Gram positive bacteremia -Pneumonia - Patient presented to ED with symptoms with severe pain and inability to bear weight - Bcx 02/23: Strep Pneumoniae - Knee aspiration: Step Pneumoniae - Bcx: 02/26: negative - Orthopedics consulted - S/p I&D (02/24) - weightbearing as tolerated - ID consulted - Total duration 4 weeks: Continue IV 2 g Ceftriaxone Daily for 3 weeks, to complete 4 weeks of treatment. - normal TTE - Pain on bilateral ankles - XR showed severe osteoarthritis - Workup for possible endocarditis - negative SVT (supraventricular tachycardia): - Patient presented with SVT intraoperative and again on PACU: HR in the 190s and hypotense - s/p diltiazem drip and vasopressors - No cardioversion - ICU consulted: Downgraded from ICU on 02/25. - s/p diltiazem - continuing metoprolol 50 mg BID - Recommended to watch for recurrent, should follow with PCP and consider Holter - JOSE: would benefit of sleep study outpatient Diet: Heart healthy diet Dispo: PCU Code Status: Full code DVT Prophylaxis: SCDs, lovenox 24 sq Total Time Total Time Spent Total Time Spent (In Minutes): .<30 Discharge Plan Discharge Items Patient Disposition: Transfer Inpatient Rehab Fac Reason For Visit: SEPTIC ARTHRITIS, RHINOVIRUS Discharge Diagnosis: Septic arthritis Bacteremia Activity: Per Instructions section Non-emergency contact: Primary Care Provider Call non-emergency contact if: you have any medication questions Follow-up/Referrals: Ronaldo Stoddard DO [Primary Care Provider] - Diet: Regular Addtl Attending Provider Instructions: 59-year-old male with a past medical history significant for obesity and GERD who presented to the [facility] ED on 02/24/2024 due to ongoing/progressive left knee pain and swelling. Found with bacteremia and septic arthritis Septic arthritis of knee, left: Gram positive bacteremia -Pneumonia - Patient presented to ED with symptoms with severe pain and inability to bear weight - Bcx 02/23: Strep Pneumoniae - Knee aspiration: Step Pneumoniae - Bcx: 02/26: negative - Orthopedics consulted - S/p I&D (02/24) - weightbearing as tolerated - ID consulted - Total duration 4 weeks: Continue IV 2 g Ceftriaxone Daily for 3 weeks, to complete 4 weeks of treatment. - normal TTE - Pain on bilateral ankles - XR showed severe osteoarthritis - Workup for possible endocarditis - negative SVT (supraventricular tachycardia): - Patient presented with SVT intraoperative and again on PACU: HR in the 190s and hypotense - s/p diltiazem drip and vasopressors - No cardioversion - ICU consulted: Downgraded from ICU on 02/25. - s/p diltiazem - continuing metoprolol 50 mg BID - Recommended to watch for recurrent, should follow with PCP and consider Holter - JOSE: would benefit of sleep study outpatient Plan Diet: Heart healthy diet Dispo: PCU Code Status: Full code DVT Prophylaxis: SCDs, lovenox 24 sq Addtl Welding Machine Operator/Tender Provider Instructions: Orthopedic discharge instructions May leave sutures open to air. You may put a Band-Aid over the sutures if they are getting caught in her clothing. Follow-up with Nicola Pearce (Dr. Pollard's PA) in 2 weeks for suture removal. Please call the office to set up an appointment for a time that works for you. Office phone number is [phone] You were treated by Dr. Pollard who is with the [facility] orthopedic group. His office is located at the [facility]. Pending Studies at Discharge: No Stand-Alone Forms: [facility], Smoking Cessation Skilled Items Patient informed of condition?: Yes DNR: No Discharge Level of Care: Acute rehab Communicable Disease: No Discharge Prognosis: Stable Lines: Mid-Line Urinary Catheter: No Medications and DC Order Prescriptions: New metoprolol tartrate 50 mg Tablet 50 mg PO BID 30 Days Qty: 60 0RF ceftriaxone 1 gram recon soln 2 g IV DAILY 21 Days Continued aspirin 81 mg tablet 81 mg PO DAILY multivitamin [One-A-Day Essential] tablet 1 tab PO DAILY potassium gluconate 595 mg (99 mg) tablet 595 mg PO DAILY cholecalciferol (vitamin D3) 2,000 unit tablet 2,000 units PO DAILY furosemide 20 mg tablet 30 mg PO DAILY Qty: 135 3RF prednisone 10 mg tablet 40 mg PO DAILY 7 Days Qty: 28 0RF Rx Instructions: Start Date 02/21/24 x7 day supply metformin 1,000 mg tablet 1,000 mg PO BIDWMEAL phentermine 37.5 mg capsule 37.5 mg PO QAM topiramate 50 mg tablet 50 mg PO BID Discharge Orders: Discharge Order (Routine); Ordered 03/02/24 Ordered By: George Blunt Admission Data Admit Date/Time: 02/24/24 14:22 Attending Provider: Flip Patel Admit Provider: Vinh Solomon Primary Care Provider: Ronaldo Stoddard Other Providers: Vinh Solomon; Nicola Pollard; Emeli Sanders; Sandhya Garcia; Buffy Pete Antonie J.; Tanya Carmichael; Rahel Watters; Ciaran John; Anup[place],[facility]; [facility], Other Interventions: Discharge Summary Assessment (RN) Last Done: 03/02/24 10:13 Supervising Physician Co-Signing Physician Notes I personally examined the patient and verified all cuellar points of history and exam, discussed case, and agree with decision making with Dr Bony Church Feels okay. Good for SNF. Belly pain gone since yesterday, ate breakfast well. Vitals noted, in general he is awake and alert pleasant no distress. HEENT normocephalic atraumatic mucous membranes moist. Abdomen soft nondistended very mild lower abdominal tenderness no guarding rebound or rigidity Septic knee arthritis - s/p washout 02/25. Blood and knee aspirate cx - strep pneumo. Concern on bacteremia leading to septic arthritisTTE reassuring, and repeat cultures negative making endocarditis unlikely. Appreciate ID input. - Continue rocephin. anticipate 4 weeks Of total treatment abdominal painnonspecific and resolved. Exam was reassuring. No serious pathology appears to be at play. Bilateral ankle pain - severe arthritis in both ankle joints. Ortho could assess further. does not appear to examine consistent with a septic picture SVT unstable - developed intraoperatively and recurred in PACU. failed adenosine x2 and was started on cardizem drip and transferred to ICU - transitioned to oral cardizemStreamline oral regimen - recurred 02/26. Now sinus. Suspect some degree of baseline electrical disease superimposed with current physiologic stressors. Continue metoprololbut more importantly continue to follow for burden of recurrence to see if setting up with electrophysiology for ablation would be worthwhile for him PNA - ceftriaxone, basically asymptomatic Rhino/enterovirus - supportive care. d/michelle prednisone. Hyponatremia - stable. follow Glucose intolerance/Weight ds - On phenteramine, topamax and metformin. Holding. DVT prophylaxis - lovenox
[2024-03-02 10:26] VITALS: BP 104/66; PULSE 79; TEMP 98.8; O2SAT 96
--- NOTE | 2024-03-02 12:29 | Billing Data ---
Date of Service March 02, 2024 Coding Level of Care Code 01615 IN/OBS DISCH 30 MIN/LESS
== END 2024-03-02 12:23 | DRG 485 ==
LOC: ED 11:52 → 2W 14:22 → SUATTDRO 14:22 → 2W 16:12 → 1E 02-25 18:07 → 4W 02-26 17:51